=== PATIENT | male | born 1935 | race Caucasian/White ===

== ENCOUNTER 2018-10-28 17:10 | Inpatient (IN) | payer MEDICARE, BC ==
[2018-10-28] MEDS ORDERED: Sodium Chloride 0.9% 10 ML Syringe FLUSH PRN (17:14)
[2018-10-28 17:39] LABS: CHLORIDE,CL 102 mEq/L (98-106); SODIUM,NA 139 mEq/L (136-145)
[2018-10-28] MEDS ORDERED: ceFAZolin 1 GM Vial IVPUSH SCH (18:00)
[2018-10-28] MEDS ORDERED: Enoxaparin 30 MG/0.3 ML Syringe SUBCUT SCH (18:00)
[2018-10-28] MEDS: Ampicillin/Sulbactam Na 3 GM in Sodium Chloride 0.9% 100 ML IV SCH ×2 (18:17→23:43)
[2018-10-28] MEDS ORDERED: Furosemide 40 MG Tab PO PRN (18:18)
[2018-10-28] MEDS: Acetaminophen 325 MG Tab PO PRN (18:36)
[2018-10-28] MEDS: Phenytoin 100 MG Cap.ER PO SCH (19:30)
[2018-10-28] MEDS: Atenolol 50 MG Tab PO SCH (19:30)
[2018-10-29] MEDS: Ampicillin/Sulbactam Na 3 GM in Sodium Chloride 0.9% 100 ML IV SCH (05:18)
[2018-10-29 07:46] LABS: CHLORIDE,CL 103 mEq/L (98-106); SODIUM,NA 139 mEq/L (136-145)
[2018-10-29] MEDS: Phenytoin 100 MG Cap.ER PO SCH ×2 (07:49→19:31)
[2018-10-29] MEDS: Potassium Gluconate (99 MG) 2 MEQ Tab PO SCH (07:49)
[2018-10-29] MEDS: Atenolol 50 MG Tab PO SCH ×2 (07:49→19:31)
--- NOTE | 2018-10-29 08:57 | PCM.PN ---
- General Info Date of Service: 10/29/18 Admission Dx/Problem (Free Text): Cellulitis of LLE Functional Status: Reports: Pain Controlled, Tolerating Diet, Ambulating - Review of Systems General: Reports: Fever, Malaise HEENT: Reports: No Symptoms Pulmonary: Denies: Shortness of Breath, Cough Cardiovascular: Reports: Edema. Denies: Chest Pain, Lightheadedness Gastrointestinal: Denies: Abdominal Pain, Nausea, Vomiting Genitourinary: Reports: Frequency Musculoskeletal: Reports: Leg Pain Skin: Reports: Other (redness to left leg) Neurological: Reports: No Symptoms - Patient Data Vitals - Most Recent: Last Vital Signs Temp 99.6 F 10/29/18 05:32 Pulse 72 10/29/18 07:49 Resp 22 H 10/29/18 04:00 BP 138/65 10/29/18 07:49 Pulse Ox 94 L 10/29/18 04:00 Weight - Most Recent: 265 lb 6.4 oz Lab Results Last 24 Hours: Laboratory Results - last 24 hr 10/28/18 10/28/18 10/29/18 Range/Units 17:28 17:28 07:00 WBC 12.4 H 8.8 (5.0-10.0) 10^3/uL RBC 4.49 L 3.84 L (4.50-6.00) 10^6/uL Hgb 14.0 11.9 L (14.0-18.0) g/dL Hct 42.1 36.5 L (40.0-54.0) % MCV 93.8 95.1 H (82.0-94.0) fL MCH 31.2 31.0 (27.0-32.0) pg MCHC 33.3 32.6 L (33.0-38.0) g/dL RDW Coeff of Shelia 14.5 14.3 (11.0-15.0) % Plt Count 158 123 L (150-400) 10^3/uL Neut % (Auto) 83.5 76.3 (35-85) % Lymph % (Auto) 9.3 L 13.6 (10-55) % [place] % (Auto) 6.3 9.0 (0-16) % Eos % (Auto) 0.7 0.9 (0-5) % Baso % (Auto) 0.2 0.2 (0-3) % Neut # (Auto) 10.36 H 6.68 (1.80-7.00) 10^3/uL Lymph # (Auto) 1.15 1.19 (1.00-4.80) 10^3/uL [place] # (Auto) 0.78 0.79 (0.00-0.80) 10^3/uL Eos # (Auto) 0.09 0.08 (0.00-0.45) 10^3/uL Baso # (Auto) 0.03 0.02 10^3/uL Sodium 139 (136-145) mEq/L Potassium 3.8 (3.5-5.0) mEq/L Chloride 102 (98-106) mEq/L Carbon Dioxide 29 (21-32) mmol/L BUN 35 H D (7-18) mg/dL Creatinine 1.3 (0.7-1.3) mg/dL Est Cr Clr Drug Dosing TNP Estimated GFR (MDRD) 52 L (>=60) mL/min Glucose 157 H (75-99) mg/dL POC Glucose (75-105) mg/dl Calcium 9.0 (8.4-10.1) mg/dL Total Bilirubin (0.0-1.0) mg/dL AST (15-37) U/L ALT (12-78) U/L Alkaline Phosphatase (46-116) U/L C-Reactive Protein 22.9 H (0.2-0.8) mg/dL Total Protein (6.4-8.2) g/dL Albumin (3.4-5.0) g/dL 10/29/18 10/29/18 Range/Units 07:15 07:32 WBC (5.0-10.0) 10^3/uL RBC (4.50-6.00) 10^6/uL Hgb (14.0-18.0) g/dL Hct (40.0-54.0) % MCV (82.0-94.0) fL MCH (27.0-32.0) pg MCHC (33.0-38.0) g/dL RDW Coeff of Shelia (11.0-15.0) % Plt Count (150-400) 10^3/uL Neut % (Auto) (35-85) % Lymph % (Auto) (10-55) % [place] % (Auto) (0-16) % Eos % (Auto) (0-5) % Baso % (Auto) (0-3) % Neut # (Auto) (1.80-7.00) 10^3/uL Lymph # (Auto) (1.00-4.80) 10^3/uL [place] # (Auto) (0.00-0.80) 10^3/uL Eos # (Auto) (0.00-0.45) 10^3/uL Baso # (Auto) 10^3/uL Sodium 139 (136-145) mEq/L Potassium 3.7 (3.5-5.0) mEq/L Chloride 103 (98-106) mEq/L Carbon Dioxide 30 (21-32) mmol/L BUN 25 H (7-18) mg/dL Creatinine 1.1 (0.7-1.3) mg/dL Est Cr Clr Drug Dosing 57.08 Estimated GFR (MDRD) > 60 (>=60) mL/min Glucose 179 H (75-99) mg/dL POC Glucose 179 H (75-105) mg/dl Calcium 8.4 (8.4-10.1) mg/dL Total Bilirubin 0.6 (0.0-1.0) mg/dL AST 10 L (15-37) U/L ALT 16 (12-78) U/L Alkaline Phosphatase 74 (46-116) U/L C-Reactive Protein 26.9 H (0.2-0.8) mg/dL Total Protein 6.9 (6.4-8.2) g/dL Albumin 2.8 L (3.4-5.0) g/dL Med Orders - Current: Current Medications Acetaminophen (Tylenol) 650 mg PO Q4H PRN PRN Reason: Pain (Mild 1-3)/fever Last Admin: 10/28/18 18:36 Dose: 650 mg Atenolol (Tenormin) 50 mg PO BID [facility] Last Admin: 10/29/18 07:49 Dose: 50 mg Enoxaparin Sodium (Lovenox) 30 mg SUBCUT Q24H [facility] Last Admin: 10/28/18 18:35 Dose: 30 mg Furosemide (Lasix) 40 mg PO DAILY [facility] Ampicillin Sodium/Sulbactam (Sodium 3 gm/ Sodium Chloride) 100 mls @ 200 mls/ hr IV Q6H [facility] Last Admin: 10/29/18 05:18 Dose: 200 mls/hr Ptom Phenytoin (50 Mg) 50 mg PO BEDTIME [facility] Phenytoin Sodium (Phenytoin) 200 mg PO BEDTIME [facility] Last Admin: 10/28/18 19:30 Dose: 200 mg Phenytoin Sodium (Phenytoin) 200 mg PO WITHBREAKFAST [facility] Last Admin: 10/29/18 07:49 Dose: 200 mg Potassium (Potassium Gluconate) 2 meq PO DAILY [facility] Last Admin: 10/29/18 07:49 Dose: 2 meq Sodium Chloride (Saline Flush) 10 ml FLUSH ASDIRECTED PRN PRN Reason: Keep Vein Open Discontinued Medications Furosemide (Lasix) 40 mg PO DAILY PRN PRN Reason: Edema Last Admin: 10/29/18 07:50 Dose: 40 mg - Exam General: Alert, Oriented Neck: Supple Lungs: Clear to Auscultation, Normal Respiratory Effort Cardiovascular: Regular Rate, Regular Rhythm GI/Abdominal Exam: Normal Bowel Sounds, Soft, Non-Tender Extremities: Leg Pain, Increased Warmth (Patient has notable warmth and redness to LLE. Is tender. RLE is swollen, 2+ but not as significant as the left.), Redness Neurological: No New Focal Deficit - Problem List & Annotations (1) Cellulitis SNOMED Code(s): 985613211 Code(s): L03.90 - CELLULITIS, UNSPECIFIED Status: Acute Priority: High Current Visit: Yes Qualifiers: Site of cellulitis of extremity: lower extremity Laterality: left - Problem List Review Problem List Initiated/Reviewed/Updated: Yes - My Orders Last 24 Hours: My Active Orders 10/30/18 08:00 Furosemide [Lasix] 40 mg PO DAILY - Assessment Assessment:: Cellulitis - Plan Plan:: Patient is resting comfortably in recliner. States continues to have discomfort in LLE but not as severe as yesterday. Continues to have increased redness to the markings, swelling and tenderness. Leg very warm to the touch. Admits that he has not been taking his Lasix for some time as he "doesn't like having to void so often". Family unaware of this, states they had questioned him about this over [place] and he said he was taking it. Was febrile during the night 99-100 temp. WBC is improved to 8.8. CRP increased to 26.9. Will continue IV Unasyn. Schedule Lasix daily. Elevate legs. Reevaluate labs in am.
[2018-10-29] MEDS: Piperacillin/Tazobactam 3.375 GM in Sodium Chloride 0.9% 50 ML IV SCH ×3 (11:26→23:17)
[2018-10-29] MEDS: Enoxaparin 40 MG/0.4 ML Syringe SUBCUT SCH (15:46)
[2018-10-29] MEDS: PHENYTOIN 50 MG PO SCH (19:31)
[2018-10-29] MEDS: Acetaminophen 325 MG Tab PO PRN (23:16)
[2018-10-30] MEDS: Piperacillin/Tazobactam 3.375 GM in Sodium Chloride 0.9% 50 ML IV SCH ×4 (06:11→23:04)
[2018-10-30] MEDS: Phenytoin 100 MG Cap.ER PO SCH ×2 (08:03→20:19)
[2018-10-30] MEDS: Potassium Gluconate (99 MG) 2 MEQ Tab PO SCH (08:03)
[2018-10-30] MEDS: Furosemide 40 MG Tab PO SCH (08:04)
[2018-10-30] MEDS: Atenolol 50 MG Tab PO SCH ×2 (08:04→20:19)
[2018-10-30] MEDS: Enoxaparin 40 MG/0.4 ML Syringe SUBCUT SCH (15:50)
[2018-10-30] MEDS: PHENYTOIN 50 MG PO SCH (20:17)
[2018-10-30] MEDS: Acetaminophen 325 MG Tab PO PRN (20:19)
--- NOTE | 2018-10-30 21:44 | PCM.PN ---
- General Info Date of Service: 10/30/18 Admission Dx/Problem (Free Text): Cellulitis of LLE Functional Status: Reports: Pain Controlled, Tolerating Diet, Ambulating - Review of Systems General: Reports: Fever, Weakness HEENT: Reports: No Symptoms Pulmonary: Denies: Shortness of Breath, Cough Cardiovascular: Reports: Edema. Denies: Chest Pain, Lightheadedness Gastrointestinal: Reports: Diarrhea. Denies: Abdominal Pain, Nausea, Vomiting Genitourinary: Reports: No Symptoms Musculoskeletal: Reports: Leg Pain Skin: Reports: Other (redness and warmth to LLE) Neurological: Reports: No Symptoms - Patient Data Vitals - Most Recent: Last Vital Signs Temp 100.6 F 10/30/18 20:00 Pulse 81 10/30/18: Resp 16 10/30/18 20:00 BP 138/73 10/30/18: Pulse Ox 92 L 10/30/18 20:00 Weight - Most Recent: 265 lb 6.4 oz Lab Results Last 24 Hours: Laboratory Results - last 24 hr 10/29/18 10/30/18 10/30/18 Range/Units 17:04 06:55 06:55 WBC 7.5 (5.0-10.0) 10^3/uL RBC 3.82 L (4.50-6.00) 10^6/uL Hgb 11.8 L (14.0-18.0) g/dL Hct 36.8 L (40.0-54.0) % MCV 96.3 H (82.0-94.0) fL MCH 30.9 (27.0-32.0) pg MCHC 32.1 L (33.0-38.0) g/dL RDW Coeff of Shelia 14.3 (11.0-15.0) % Plt Count 128 L (150-400) 10^3/uL Neut % (Auto) 78.7 (35-85) % Lymph % (Auto) 10.9 (10-55) % [place] % (Auto) 8.8 (0-16) % Eos % (Auto) 1.3 (0-5) % Baso % (Auto) 0.3 (0-3) % Neut # (Auto) 5.93 (1.80-7.00) 10^3/uL Lymph # (Auto) 0.82 L (1.00-4.80) 10^3/uL [place] # (Auto) 0.66 (0.00-0.80) 10^3/uL Eos # (Auto) 0.10 (0.00-0.45) 10^3/uL Baso # (Auto) 0.02 10^3/uL POC Glucose 203 H (75-105) mg/dl C-Reactive Protein 25.7 H (0.2-0.8) mg/dL 10/30/18 10/30/18 Range/Units 08:00 21:22 WBC (5.0-10.0) 10^3/uL RBC (4.50-6.00) 10^6/uL Hgb (14.0-18.0) g/dL Hct (40.0-54.0) % MCV (82.0-94.0) fL MCH (27.0-32.0) pg MCHC (33.0-38.0) g/dL RDW Coeff of Shelia (11.0-15.0) % Plt Count (150-400) 10^3/uL Neut % (Auto) (35-85) % Lymph % (Auto) (10-55) % [place] % (Auto) (0-16) % Eos % (Auto) (0-5) % Baso % (Auto) (0-3) % Neut # (Auto) (1.80-7.00) 10^3/uL Lymph # (Auto) (1.00-4.80) 10^3/uL [place] # (Auto) (0.00-0.80) 10^3/uL Eos # (Auto) (0.00-0.45) 10^3/uL Baso # (Auto) 10^3/uL POC Glucose 176 H 204 H (75-105) mg/dl C-Reactive Protein (0.2-0.8) mg/dL Alex Results Last 24 Hours: Microbiology 10/28/18 17:20 Aerobic Blood Culture - Preliminary Blood - Venous NO GROWTH AFTER 2 DAYS Anaerobic Blood Culture - Preliminary NO GROWTH AFTER 2 DAYS 10/28/18 17:28 Aerobic Blood Culture - Preliminary Blood - Venous - Lab Draw NO GROWTH AFTER 2 DAYS Anaerobic Blood Culture - Preliminary NO GROWTH AFTER 2 DAYS 10/30/18 09:12 C. difficile DNA Amplification - Final Stool / Feces NEGATIVE CDIFF BY DNA Med Orders - Current: Current Medications Acetaminophen (Tylenol) 650 mg PO Q4H PRN PRN Reason: Pain (Mild 1-3)/fever Last Admin: 10/30/18 20:19 Dose: 650 mg Atenolol (Tenormin) 50 mg PO BID [facility] Last Admin: 10/30/18 20:19 Dose: 50 mg Enoxaparin Sodium (Lovenox) 40 mg SUBCUT 1600 [facility] Last Admin: 10/30/18 15:50 Dose: 40 mg Furosemide (Lasix) 40 mg PO DAILY [facility] Last Admin: 10/30/18 08:04 Dose: 40 mg Piperacillin Sod/Tazobactam (Sod 3.375 gm/ Sodium Chloride) 50 mls @ 100 mls/ hr IV Q6H [facility] Last Admin: 10/30/18 18:24 Dose: 100 mls/hr Ptom Phenytoin (50 Mg) 50 mg PO BEDTIME [facility] Last Admin: 10/30/18 20:17 Dose: 50 mg Phenytoin Sodium (Phenytoin) 200 mg PO BEDTIME [facility] Last Admin: 10/30/18 20:19 Dose: 200 mg Phenytoin Sodium (Phenytoin) 200 mg PO WITHBREAKFAST [facility] Last Admin: 10/30/18 08:03 Dose: 200 mg Potassium (Potassium Gluconate) 2 meq PO DAILY [facility] Last Admin: 10/30/18 08:03 Dose: 2 meq Sodium Chloride (Saline Flush) 10 ml FLUSH ASDIRECTED PRN PRN Reason: Keep Vein Open Discontinued Medications Enoxaparin Sodium (Lovenox) 30 mg SUBCUT Q24H [facility] Last Admin: 10/28/18 18:35 Dose: 30 mg Furosemide (Lasix) 40 mg PO DAILY PRN PRN Reason: Edema Last Admin: 10/29/18 07:50 Dose: 40 mg Ampicillin Sodium/Sulbactam (Sodium 3 gm/ Sodium Chloride) 100 mls @ 200 mls/ hr IV Q6H [facility] Last Admin: 10/29/18 05:18 Dose: 200 mls/hr - Exam General: Alert, Oriented HEENT: Mucous Membr. Moist/[place] Neck: Supple Lungs: Clear to Auscultation, Normal Respiratory Effort Cardiovascular: Regular Rate, Regular Rhythm GI/Abdominal Exam: Normal Bowel Sounds, Soft, Non-Tender Extremities: Pedal Edema (2+ LLE), Increased Warmth, Redness Skin: Warm, Dry Wound/Incisions: Erythema Improving Neurological: No New Focal Deficit - Problem List & Annotations (1) Cellulitis SNOMED Code(s): 463484365 Code(s): L03.90 - CELLULITIS, UNSPECIFIED Status: Acute Priority: High Current Visit: Yes Qualifiers: Site of cellulitis of extremity: lower extremity Laterality: left - Problem List Review Problem List Initiated/Reviewed/Updated: Yes - My Orders Last 24 Hours: My Active Orders 10/30/18 08:00 Furosemide [Lasix] 40 mg PO DAILY - Assessment Assessment:: Cellulitis - Plan Plan:: Patient is resting comfortably in recliner. States continues to have discomfort in LLE but not as severe as yesterday. Continues to have increased redness to the markings, swelling and tenderness. Leg very warm to the touch. Admits that he has not been taking his Lasix for some time as he "doesn't like having to void so often". Family unaware of this, states they had questioned him about this over [place] and he said he was taking it. Was febrile during the night 99-100 temp. WBC is improved to 8.8. CRP increased to 26.9. Will continue IV Unasyn. Schedule Lasix daily. Elevate legs. Reevaluate labs in am. 10-30-2018 Patient doing well today. Left leg is much improved today. Redness decreased significantly. Edema 2+. Nontender with palpation today. Leg is warm but not nearly like yesterday. Low grade fever today. Is having frequent loose stools. WBC stable. CRP down slightly to 25.7. Will obtain c diff stool study. Continue Zosyn. Repeat labs in am.
[2018-10-31] MEDS: Piperacillin/Tazobactam 3.375 GM in Sodium Chloride 0.9% 50 ML IV SCH ×4 (06:07→23:53)
[2018-10-31] MEDS: Potassium Gluconate (99 MG) 2 MEQ Tab PO SCH (07:47)
[2018-10-31] MEDS: Phenytoin 100 MG Cap.ER PO SCH ×2 (07:47→19:32)
[2018-10-31] MEDS: Furosemide 40 MG Tab PO SCH (07:54)
[2018-10-31] MEDS: Atenolol 50 MG Tab PO SCH ×2 (07:55→19:32)
--- NOTE | 2018-10-31 13:15 | PCM.PN ---
- General Info Date of Service: 10/31/18 Admission Dx/Problem (Free Text): Cellulitis of LLE Functional Status: Reports: Pain Controlled, Tolerating Diet, Ambulating - Review of Systems General: Reports: Fever, Fatigue HEENT: Reports: No Symptoms Pulmonary: Denies: Shortness of Breath, Cough Cardiovascular: Reports: Edema. Denies: Chest Pain, Lightheadedness Gastrointestinal: Reports: Diarrhea (states stool frequency is decreasing). Denies: Abdominal Pain, Nausea, Vomiting Genitourinary: Reports: No Symptoms Musculoskeletal: Reports: Leg Pain Skin: Reports: Other (redness to left leg) Neurological: Reports: No Symptoms - Patient Data Vitals - Most Recent: Last Vital Signs Temp 97.5 F 10/31/18 11:52 Pulse 67 10/31/18 11:52 Resp 20 10/31/18 11:52 BP 152/79 H 10/31/18 11:52 Pulse Ox 96 10/31/18 11:52 Weight - Most Recent: 265 lb 6.4 oz Lab Results Last 24 Hours: Laboratory Results - last 24 hr 10/30/18 10/31/18 10/31/18 Range/Units 21:22 06:55 06:55 WBC 6.3 (5.0-10.0) 10^3/uL RBC 4.03 L (4.50-6.00) 10^6/uL Hgb 12.7 L (14.0-18.0) g/dL Hct 38.0 L (40.0-54.0) % MCV 94.3 H (82.0-94.0) fL MCH 31.5 (27.0-32.0) pg MCHC 33.4 (33.0-38.0) g/dL RDW Coeff of Shelia 13.8 (11.0-15.0) % Plt Count 154 (150-400) 10^3/uL Neut % (Auto) 71.5 (35-85) % Lymph % (Auto) 16.5 (10-55) % [place] % (Auto) 8.3 (0-16) % Eos % (Auto) 3.2 (0-5) % Baso % (Auto) 0.5 (0-3) % Neut # (Auto) 4.50 (1.80-7.00) 10^3/uL Lymph # (Auto) 1.04 (1.00-4.80) 10^3/uL [place] # (Auto) 0.52 (0.00-0.80) 10^3/uL Eos # (Auto) 0.20 (0.00-0.45) 10^3/uL Baso # (Auto) 0.03 10^3/uL POC Glucose 204 H (75-105) mg/dl C-Reactive Protein 19.4 H (0.2-0.8) mg/dL 10/31/18 Range/Units 07:54 WBC (5.0-10.0) 10^3/uL RBC (4.50-6.00) 10^6/uL Hgb (14.0-18.0) g/dL Hct (40.0-54.0) % MCV (82.0-94.0) fL MCH (27.0-32.0) pg MCHC (33.0-38.0) g/dL RDW Coeff of Shelia (11.0-15.0) % Plt Count (150-400) 10^3/uL Neut % (Auto) (35-85) % Lymph % (Auto) (10-55) % [place] % (Auto) (0-16) % Eos % (Auto) (0-5) % Baso % (Auto) (0-3) % Neut # (Auto) (1.80-7.00) 10^3/uL Lymph # (Auto) (1.00-4.80) 10^3/uL [place] # (Auto) (0.00-0.80) 10^3/uL Eos # (Auto) (0.00-0.45) 10^3/uL Baso # (Auto) 10^3/uL POC Glucose 186 H (75-105) mg/dl C-Reactive Protein (0.2-0.8) mg/dL Alex Results Last 24 Hours: Microbiology 10/28/18 17:20 Aerobic Blood Culture - Preliminary Blood - Venous NO GROWTH AFTER 2 DAYS Anaerobic Blood Culture - Preliminary NO GROWTH AFTER 2 DAYS 10/28/18 17:28 Aerobic Blood Culture - Preliminary Blood - Venous - Lab Draw NO GROWTH AFTER 2 DAYS Anaerobic Blood Culture - Preliminary NO GROWTH AFTER 2 DAYS 10/30/18 09:12 C. difficile DNA Amplification - Final Stool / Feces NEGATIVE CDIFF BY DNA Med Orders - Current: Current Medications Acetaminophen (Tylenol) 650 mg PO Q4H PRN PRN Reason: Pain (Mild 1-3)/fever Last Admin: 10/30/18 20:19 Dose: 650 mg Atenolol (Tenormin) 50 mg PO BID [facility] Last Admin: 10/31/18 07:55 Dose: 50 mg Enoxaparin Sodium (Lovenox) 40 mg SUBCUT 1600 [facility] Last Admin: 10/30/18 15:50 Dose: 40 mg Furosemide (Lasix) 40 mg PO DAILY [facility] Last Admin: 10/31/18 07:54 Dose: 40 mg Piperacillin Sod/Tazobactam (Sod 3.375 gm/ Sodium Chloride) 50 mls @ 100 mls/ hr IV Q6H [facility] Last Admin: 10/31/18 11:29 Dose: 100 mls/hr Ptom Phenytoin (50 Mg) 50 mg PO BEDTIME [facility] Last Admin: 10/30/18 20:17 Dose: 50 mg Phenytoin Sodium (Phenytoin) 200 mg PO BEDTIME [facility] Last Admin: 10/30/18 20:19 Dose: 200 mg Phenytoin Sodium (Phenytoin) 200 mg PO WITHBREAKFAST [facility] Last Admin: 10/31/18 07:47 Dose: 200 mg Potassium (Potassium Gluconate) 2 meq PO DAILY [facility] Last Admin: 10/31/18 07:47 Dose: 2 meq Sodium Chloride (Saline Flush) 10 ml FLUSH ASDIRECTED PRN PRN Reason: Keep Vein Open Discontinued Medications Enoxaparin Sodium (Lovenox) 30 mg SUBCUT Q24H [facility] Last Admin: 10/28/18 18:35 Dose: 30 mg Furosemide (Lasix) 40 mg PO DAILY PRN PRN Reason: Edema Last Admin: 10/29/18 07:50 Dose: 40 mg Ampicillin Sodium/Sulbactam (Sodium 3 gm/ Sodium Chloride) 100 mls @ 200 mls/ hr IV Q6H [facility] Last Admin: 10/29/18 05:18 Dose: 200 mls/hr - Exam General: Alert, Oriented HEENT: Mucous Membr. Moist/[place] Neck: Supple Lungs: Clear to Auscultation, Normal Respiratory Effort Cardiovascular: Regular Rate, Regular Rhythm GI/Abdominal Exam: Normal Bowel Sounds, Soft, Non-Tender Extremities: Pedal Edema, Increased Warmth, Redness (LLE redness is improving. Less warmth. Swelling down to 1-2+. ) - Problem List & Annotations (1) Cellulitis SNOMED Code(s): 677590523 Code(s): L03.90 - CELLULITIS, UNSPECIFIED Status: Acute Priority: High Current Visit: Yes Qualifiers: Site of cellulitis of extremity: lower extremity Laterality: left - Problem List Review Problem List Initiated/Reviewed/Updated: Yes - Assessment Assessment:: Cellulitis - Plan Plan:: Patient is resting comfortably in recliner. States continues to have discomfort in LLE but not as severe as yesterday. Continues to have increased redness to the markings, swelling and tenderness. Leg very warm to the touch. Admits that he has not been taking his Lasix for some time as he "doesn't like having to void so often". Family unaware of this, states they had questioned him about this over [place] and he said he was taking it. Was febrile during the night 99-100 temp. WBC is improved to 8.8. CRP increased to 26.9. Will continue IV Unasyn. Schedule Lasix daily. Elevate legs. Reevaluate labs in am. 10-30-2018 Patient doing well today. Left leg is much improved today. Redness decreased significantly. Edema 2+. Nontender with palpation today. Leg is warm but not nearly like yesterday. Low grade fever today. Is having frequent loose stools. WBC stable. CRP down slightly to 25.7. Will obtain c diff stool study. Continue Zosyn. Repeat labs in am. 10-31-2018 Patient continues to improve. Did still run low grade temps last evening/early am. Redness is improving daily to LLE, decreased to midshin at this time. Still warm to the touch. Swelling/edema 2+ in that leg. Patient states diarrhea stools are lessening in frequency, not as loose as they were yesterday. Labs are improving. WBC stable, CRP down to 19.4 today. Will continue with IV Zosyn. Recheck labs tomorrow. Possible transfer to swing bed tomorrow.
[2018-10-31] MEDS: Enoxaparin 40 MG/0.4 ML Syringe SUBCUT SCH (17:04)
[2018-10-31] MEDS: PHENYTOIN 50 MG PO SCH (19:32)
[2018-11-01] MEDS: Piperacillin/Tazobactam 3.375 GM in Sodium Chloride 0.9% 50 ML IV SCH ×4 (05:51→23:51)
[2018-11-01] MEDS: Phenytoin 100 MG Cap.ER PO SCH ×2 (07:57→19:26)
[2018-11-01] MEDS: Potassium Gluconate (99 MG) 2 MEQ Tab PO SCH (07:58)
[2018-11-01] MEDS: Furosemide 40 MG Tab PO SCH (07:58)
[2018-11-01] MEDS: Atenolol 50 MG Tab PO SCH ×2 (07:58→19:25)
[2018-11-01 09:25] LABS: CHLORIDE,CL 99 mEq/L (98-106); SODIUM,NA 137 mEq/L (136-145)
--- NOTE | 2018-11-01 14:02 | PCM.PN ---
- General Info Date of Service: 11/01/18 Functional Status: Reports: Pain Controlled, Tolerating Diet, Ambulating, Urinating - Review of Systems General: Reports: No Symptoms HEENT: Reports: No Symptoms Pulmonary: Reports: No Symptoms Cardiovascular: Reports: No Symptoms Gastrointestinal: Reports: No Symptoms Genitourinary: Reports: No Symptoms Musculoskeletal: Reports: No Symptoms Skin: Reports: Other (redness LLE about mid calf down to foot. ) Neurological: Reports: No Symptoms Psychiatric: Reports: No Symptoms - Patient Data Vitals - Most Recent: Last Vital Signs Temp 97.3 F 11/01/18 08:00 Pulse 66 11/01/18 08:00 Resp 18 11/01/18 08:00 BP 149/83 H 11/01/18 08:00 Pulse Ox 96 11/01/18 08:00 Weight - Most Recent: 265 lb 6.4 oz Lab Results Last 24 Hours: Laboratory Results - last 24 hr 10/31/18 11/01/18 11/01/18 Range/Units 17:05 07:57 09:10 WBC (5.0-10.0) 10^3/uL RBC (4.50-6.00) 10^6/uL Hgb (14.0-18.0) g/dL Hct (40.0-54.0) % MCV (82.0-94.0) fL MCH (27.0-32.0) pg MCHC (33.0-38.0) g/dL RDW Coeff of Shelia (11.0-15.0) % Plt Count (150-400) 10^3/uL Neut % (Auto) (35-85) % Lymph % (Auto) (10-55) % [place] % (Auto) (0-16) % Eos % (Auto) (0-5) % Baso % (Auto) (0-3) % Neut # (Auto) (1.80-7.00) 10^3/uL Lymph # (Auto) (1.00-4.80) 10^3/uL [place] # (Auto) (0.00-0.80) 10^3/uL Eos # (Auto) (0.00-0.45) 10^3/uL Baso # (Auto) 10^3/uL Sodium 137 (136-145) mEq/L Potassium 4.1 (3.5-5.0) mEq/L Chloride 99 (98-106) mEq/L Carbon Dioxide 30 (21-32) mmol/L BUN 15 (7-18) mg/dL Creatinine 1.1 (0.7-1.3) mg/dL Est Cr Clr Drug Dosing 57.08 mL/min Estimated GFR (MDRD) > 60 (>=60) mL/min Glucose 275 H D (75-99) mg/dL POC Glucose 201 H 198 H (75-105) mg/dl Calcium 8.7 (8.4-10.1) mg/dL C-Reactive Protein (0.2-0.8) mg/dL 11/01/18 11/01/18 Range/Units 09:10 09:10 WBC 5.2 (5.0-10.0) 10^3/uL RBC 4.30 L (4.50-6.00) 10^6/uL Hgb 13.3 L (14.0-18.0) g/dL Hct 40.4 (40.0-54.0) % MCV 94.0 (82.0-94.0) fL MCH 30.9 (27.0-32.0) pg MCHC 32.9 L (33.0-38.0) g/dL RDW Coeff of Shelia 13.5 (11.0-15.0) % Plt Count 166 (150-400) 10^3/uL Neut % (Auto) 68.6 (35-85) % Lymph % (Auto) 18.4 (10-55) % [place] % (Auto) 8.0 (0-16) % Eos % (Auto) 4.2 (0-5) % Baso % (Auto) 0.8 (0-3) % Neut # (Auto) 3.58 (1.80-7.00) 10^3/uL Lymph # (Auto) 0.96 L (1.00-4.80) 10^3/uL [place] # (Auto) 0.42 (0.00-0.80) 10^3/uL Eos # (Auto) 0.22 (0.00-0.45) 10^3/uL Baso # (Auto) 0.04 10^3/uL Sodium (136-145) mEq/L Potassium (3.5-5.0) mEq/L Chloride (98-106) mEq/L Carbon Dioxide (21-32) mmol/L BUN (7-18) mg/dL Creatinine (0.7-1.3) mg/dL Est Cr Clr Drug Dosing mL/min Estimated GFR (MDRD) (>=60) mL/min Glucose (75-99) mg/dL POC Glucose (75-105) mg/dl Calcium (8.4-10.1) mg/dL C-Reactive Protein 11.3 H (0.2-0.8) mg/dL Alex Results Last 24 Hours: Microbiology 10/28/18 17:20 Aerobic Blood Culture - Preliminary Blood - Venous NO GROWTH AFTER 3 DAYS Anaerobic Blood Culture - Preliminary NO GROWTH AFTER 3 DAYS 10/28/18 17:28 Aerobic Blood Culture - Preliminary Blood - Venous - Lab Draw NO GROWTH AFTER 3 DAYS Anaerobic Blood Culture - Preliminary NO GROWTH AFTER 3 DAYS Med Orders - Current: Current Medications Acetaminophen (Tylenol) 650 mg PO Q4H PRN PRN Reason: Pain (Mild 1-3)/fever Last Admin: 10/30/18 20:19 Dose: 650 mg Atenolol (Tenormin) 50 mg PO BID [facility] Last Admin: 11/01/18 07:58 Dose: 50 mg Enoxaparin Sodium (Lovenox) 40 mg SUBCUT 1600 [facility] Last Admin: 10/31/18 17:04 Dose: 40 mg Furosemide (Lasix) 40 mg PO DAILY [facility] Last Admin: 11/01/18 07:58 Dose: 40 mg Piperacillin Sod/Tazobactam (Sod 3.375 gm/ Sodium Chloride) 50 mls @ 100 mls/ hr IV Q6H [facility] Last Admin: 11/01/18 11:12 Dose: 100 mls/hr Ptom Phenytoin (50 Mg) 50 mg PO BEDTIME [facility] Last Admin: 10/31/18 19:32 Dose: 50 mg Phenytoin Sodium (Phenytoin) 200 mg PO BEDTIME [facility] Last Admin: 10/31/18 19:32 Dose: 200 mg Phenytoin Sodium (Phenytoin) 200 mg PO WITHBREAKFAST [facility] Last Admin: 11/01/18 07:57 Dose: 200 mg Potassium (Potassium Gluconate) 2 meq PO DAILY [facility] Last Admin: 11/01/18 07:58 Dose: 2 meq Sodium Chloride (Saline Flush) 10 ml FLUSH ASDIRECTED PRN PRN Reason: Keep Vein Open Discontinued Medications Enoxaparin Sodium (Lovenox) 30 mg SUBCUT Q24H [facility] Last Admin: 10/28/18 18:35 Dose: 30 mg Furosemide (Lasix) 40 mg PO DAILY PRN PRN Reason: Edema Last Admin: 10/29/18 07:50 Dose: 40 mg Ampicillin Sodium/Sulbactam (Sodium 3 gm/ Sodium Chloride) 100 mls @ 200 mls/ hr IV Q6H [facility] Last Admin: 10/29/18 05:18 Dose: 200 mls/hr - Exam General: Alert, Oriented, Cooperative, No Acute Distress Lungs: Clear to Auscultation, Normal Respiratory Effort Cardiovascular: Regular Rate, Regular Rhythm, No Murmurs GI/Abdominal Exam: Normal Bowel Sounds, Soft, Non-Tender, No Organomegaly, No Distention, No Abnormal Bruit, No Mass, Pelvis Stable Back Exam: Normal Inspection, Full Range of Motion Extremities: Normal Range of Motion, Non-Tender, Normal Capillary Refill, Pedal Edema (+2 LLE), Redness (LLE mid calf to the ankle. Much improved since yesterday marking on the leg. Decreased swelling, decreased warm. Nontender today. ) Peripheral Pulses: 2+: Popliteal (L), Popliteal (R), Posterior Tibial (L), Posterior Tibial (R), Dorsalis Pedis (L), Dorsalis Pedis (R) Skin: Warm, Dry, Intact Neurological: No New Focal Deficit, Normal Speech Psy/Mental Status: Alert, Normal Affect, Normal Mood - Problem List Review Problem List Initiated/Reviewed/Updated: Yes - My Orders Last 24 Hours: My Active Orders 11/02/18 05:00 BASIC METABOLIC PANEL,BMP [CHEM] DAILY 11/03/18 05:00 BASIC METABOLIC PANEL,BMP [CHEM] DAILY - Assessment Assessment:: Cellulitis - Plan Plan:: Patient is resting comfortably in recliner. States continues to have discomfort in LLE but not as severe as yesterday. Continues to have increased redness to the markings, swelling and tenderness. Leg very warm to the touch. Admits that he has not been taking his Lasix for some time as he "doesn't like having to void so often". Family unaware of this, states they had questioned him about this over [place] and he said he was taking it. Was febrile during the night 99-100 temp. WBC is improved to 8.8. CRP increased to 26.9. Will continue IV Unasyn. Schedule Lasix daily. Elevate legs. Reevaluate labs in am. 10-30-2018 Patient doing well today. Left leg is much improved today. Redness decreased significantly. Edema 2+. Nontender with palpation today. Leg is warm but not nearly like yesterday. Low grade fever today. Is having frequent loose stools. WBC stable. CRP down slightly to 25.7. Will obtain c diff stool study. Continue Zosyn. Repeat labs in am. 10-31-2018 Patient continues to improve. Did still run low grade temps last evening/early am. Redness is improving daily to LLE, decreased to midshin at this time. Still warm to the touch. Swelling/edema 2+ in that leg. Patient states diarrhea stools are lessening in frequency, not as loose as they were yesterday. Labs are improving. WBC stable, CRP down to 19.4 today. Will continue with IV Zosyn. Recheck labs tomorrow. Possible transfer to swing bed tomorrow. 11/01/18 The patient today is much improved. The patient request to stay one more day. The patient denies epstein, dizziness, n, v, d, f. Reports leg is less tender. The labs are unremarkable. At this time, the plan is I will continue IV abx and discharge patient home tomorrow morning.
[2018-11-01] MEDS: Enoxaparin 40 MG/0.4 ML Syringe SUBCUT SCH (16:57)
[2018-11-01] MEDS: PHENYTOIN 50 MG PO SCH (19:26)
[2018-11-02] MEDS: Piperacillin/Tazobactam 3.375 GM in Sodium Chloride 0.9% 50 ML IV SCH ×2 (05:57→11:28)
[2018-11-02] MEDS: Furosemide 40 MG Tab PO SCH (07:45)
[2018-11-02] MEDS: Atenolol 50 MG Tab PO SCH (07:46)
[2018-11-02] MEDS: Phenytoin 100 MG Cap.ER PO SCH (07:46)
[2018-11-02] MEDS: Potassium Gluconate (99 MG) 2 MEQ Tab PO SCH (07:46)
[2018-11-02 08:04] LABS: CHLORIDE,CL 102 mEq/L (98-106); SODIUM,NA 139 mEq/L (136-145)
[2018-11-02] MEDS: Enoxaparin 40 MG/0.4 ML Syringe SUBCUT SCH (16:25)
--- NOTE | 2018-11-02 16:39 | PCM.PN ---
- General Info Date of Service: 11/02/18 Functional Status: Reports: Pain Controlled, Tolerating Diet, Ambulating - Review of Systems General: Reports: No Symptoms. Denies: Fever HEENT: Reports: No Symptoms Pulmonary: Reports: No Symptoms Cardiovascular: Reports: No Symptoms Gastrointestinal: Reports: No Symptoms Genitourinary: Reports: No Symptoms Musculoskeletal: Reports: Leg Pain (LLE) Skin: Reports: Other (redness LLE) Neurological: Reports: No Symptoms Psychiatric: Reports: No Symptoms - Patient Data Vitals - Most Recent: Last Vital Signs Temp 98.6 F 11/02/18 16:28 Pulse 72 11/02/18 15:24 Resp 16 11/02/18 15:24 BP 141/82 H 11/02/18 15:24 Pulse Ox 95 11/02/18 15:24 Weight - Most Recent: 265 lb 6.4 oz Lab Results Last 24 Hours: Laboratory Results - last 24 hr 11/01/18 11/02/18 11/02/18 Range/Units 17:07 07:00 07:50 Sodium 139 (136-145) mEq/L Potassium 4.1 (3.5-5.0) mEq/L Chloride 102 (98-106) mEq/L Carbon Dioxide 31 (21-32) mmol/L BUN 16 (7-18) mg/dL Creatinine 1.1 (0.7-1.3) mg/dL Est Cr Clr Drug Dosing 57.08 mL/min Estimated GFR (MDRD) > 60 (>=60) mL/min Glucose 188 H D (75-99) mg/dL POC Glucose 181 H 185 H (75-105) mg/dl Calcium 9.0 (8.4-10.1) mg/dL Alex Results Last 24 Hours: Microbiology 10/28/18 17:20 Aerobic Blood Culture - Preliminary Blood - Venous NO GROWTH AFTER 4 DAYS Anaerobic Blood Culture - Preliminary NO GROWTH AFTER 4 DAYS 10/28/18 17:28 Aerobic Blood Culture - Preliminary Blood - Venous - Lab Draw NO GROWTH AFTER 4 DAYS Anaerobic Blood Culture - Preliminary NO GROWTH AFTER 4 DAYS Med Orders - Current: Current Medications Acetaminophen (Tylenol) 650 mg PO Q4H PRN PRN Reason: Pain (Mild 1-3)/fever Last Admin: 10/30/18 20:19 Dose: 650 mg Atenolol (Tenormin) 50 mg PO BID [facility] Last Admin: 11/02/18 07:46 Dose: 50 mg Enoxaparin Sodium (Lovenox) 40 mg SUBCUT 1600 [facility] Last Admin: 11/02/18 16:25 Dose: 40 mg Furosemide (Lasix) 40 mg PO DAILY [facility] Last Admin: 11/02/18 07:45 Dose: 40 mg Piperacillin Sod/Tazobactam (Sod 3.375 gm/ Sodium Chloride) 50 mls @ 100 mls/ hr IV Q6H [facility] Last Admin: 11/02/18 11:28 Dose: 100 mls/hr Ptom Phenytoin (50 Mg) 50 mg PO BEDTIME [facility] Last Admin: 11/01/18 19:26 Dose: 50 mg Phenytoin Sodium (Phenytoin) 200 mg PO BEDTIME [facility] Last Admin: 11/01/18 19:26 Dose: 200 mg Phenytoin Sodium (Phenytoin) 200 mg PO WITHBREAKFAST [facility] Last Admin: 11/02/18 07:46 Dose: 200 mg Potassium (Potassium Gluconate) 2 meq PO DAILY [facility] Last Admin: 11/02/18 07:46 Dose: 2 meq Sodium Chloride (Saline Flush) 10 ml FLUSH ASDIRECTED PRN PRN Reason: Keep Vein Open Discontinued Medications Enoxaparin Sodium (Lovenox) 30 mg SUBCUT Q24H [facility] Last Admin: 10/28/18 18:35 Dose: 30 mg Furosemide (Lasix) 40 mg PO DAILY PRN PRN Reason: Edema Last Admin: 10/29/18 07:50 Dose: 40 mg Ampicillin Sodium/Sulbactam (Sodium 3 gm/ Sodium Chloride) 100 mls @ 200 mls/ hr IV Q6H [facility] Last Admin: 10/29/18 05:18 Dose: 200 mls/hr - Exam General: Alert, Oriented, Cooperative, No Acute Distress Lungs: Clear to Auscultation, Normal Respiratory Effort Cardiovascular: Regular Rate, Regular Rhythm, No Murmurs GI/Abdominal Exam: Soft, Non-Tender Back Exam: Normal Inspection, Full Range of Motion Extremities: Normal Capillary Refill, Pedal Edema (+2 LLE, +1 RLL. ), Leg Pain ( LLE distal anterior calf. ), Increased Warmth (LLE), Redness (LLE. improved since yesterday. ) Peripheral Pulses: 2+: Posterior Tibial (L), Posterior Tibial (R), Dorsalis Pedis (L), Dorsalis Pedis (R) Skin: Warm, Dry, Intact Psy/Mental Status: Alert, Normal Affect, Normal Mood - Problem List Review Problem List Initiated/Reviewed/Updated: Yes - My Orders Last 24 Hours: My Active Orders 11/03/18 05:00 BASIC METABOLIC PANEL,BMP [CHEM] DAILY - Assessment Assessment:: Cellulitis - Plan Plan:: Patient is resting comfortably in recliner. States continues to have discomfort in LLE but not as severe as yesterday. Continues to have increased redness to the markings, swelling and tenderness. Leg very warm to the touch. Admits that he has not been taking his Lasix for some time as he "doesn't like having to void so often". Family unaware of this, states they had questioned him about this over [place] and he said he was taking it. Was febrile during the night 99-100 temp. WBC is improved to 8.8. CRP increased to 26.9. Will continue IV Unasyn. Schedule Lasix daily. Elevate legs. Reevaluate labs in am. 10-30-2018 Patient doing well today. Left leg is much improved today. Redness decreased significantly. Edema 2+. Nontender with palpation today. Leg is warm but not nearly like yesterday. Low grade fever today. Is having frequent loose stools. WBC stable. CRP down slightly to 25.7. Will obtain c diff stool study. Continue Zosyn. Repeat labs in am. 10-31-2018 Patient continues to improve. Did still run low grade temps last evening/early am. Redness is improving daily to LLE, decreased to midshin at this time. Still warm to the touch. Swelling/edema 2+ in that leg. Patient states diarrhea stools are lessening in frequency, not as loose as they were yesterday. Labs are improving. WBC stable, CRP down to 19.4 today. Will continue with IV Zosyn. Recheck labs tomorrow. Possible transfer to swing bed tomorrow. 11/01/18 The patient today is much improved. The patient request to stay one more day. The patient denies epstein, dizziness, n, v, d, f. Reports leg is less tender. The labs are unremarkable. At this time, the plan is I will continue IV abx and discharge patient home tomorrow morning.
--- NOTE | 2018-11-02 16:49 | PCM.DCSUM1 ---
Discharge Summary - Hospital Course HPI Initial Comments: 11/02/18 Patient continues to improve today. The patient reports that he is feeling better from yesterday to today. Patient report though that he is concerned that he may be going home to early and it will worsen if he goes home. The patient request to stay one more night. The patient reports he is sitll having some pain to the LLE. The patient still does continue to have cellulitis to the LLE. It has improved, but still current. The patient denies epstein, dizziness, n, v, d, f. Reports leg is tender. The labs are unremarkable, CRP remains elevated. At this time, the plan is I will continue IV abx and allow PCP to see the patient tomorrow for possible discharge. I will swing the patient. The patient has been able to get up with assistance. He has continued to have legs elevated in recliner chair in the room. Diagnosis: Stroke: No - Discharge Data Discharge Date: 11/02/18 Discharge Disposition: DC/Tfer W/I Hosp To Swing 61 Condition: Good - Discharge Plan *PRESCRIPTION DRUG MONITORING PROGRAM REVIEWED*: Not Applicable *COPY OF PRESCRIPTION DRUG MONITORING REPORT IN PATIENT JUDY: Not Applicable Home Medications: Home Meds Atenolol 50 mg PO BID 10/28/18 [History] Furosemide 40 mg PO DAILY PRN 10/28/18 [History] Multivit-Min/FA/Lycopen/Lutein [Centrum Silver Men Tablet] 1 tab PO DAILY [History] Phenytoin 50 mg PO BEDTIME 10/28/18 [History] Phenytoin Sodium Extended [Dilantin] 200 mg PO BEDTIME 10/28/18 [History] Phenytoin Sodium Extended [Dilantin] 200 mg PO WITHBREAKFAST 10/28/18 [History] Potassium 99 mg PO DAILY 10/28/18 [History] Patient Handouts: Cellulitis, Adult - Discharge Summary/Plan Comment DC Time >30 min.: No - General Info Date of Service: 11/02/18 Functional Status: Reports: Pain Controlled, Tolerating Diet, Ambulating - Review of Systems General: Reports: No Symptoms HEENT: Reports: No Symptoms Pulmonary: Reports: No Symptoms Cardiovascular: Reports: No Symptoms Gastrointestinal: Reports: No Symptoms Genitourinary: Reports: No Symptoms Musculoskeletal: Reports: Other (LLE Pain) Skin: Reports: Other (Redness) Neurological: Reports: No Symptoms Psychiatric: Reports: No Symptoms - Patient Data Vitals - Most Recent: Last Vital Signs Temp 98.6 F 11/02/18 16:28 Pulse 72 11/02/18 15:24 Resp 16 11/02/18 15:24 BP 141/82 H 11/02/18 15:24 Pulse Ox 95 11/02/18 15:24 Weight - Most Recent: 265 lb 6.4 oz Lab Results - Last 24 hrs: Laboratory Results - last 24 hr 11/01/18 11/02/18 11/02/18 Range/Units 17:07 07:00 07:50 Sodium 139 (136-145) mEq/L Potassium 4.1 (3.5-5.0) mEq/L Chloride 102 (98-106) mEq/L Carbon Dioxide 31 (21-32) mmol/L BUN 16 (7-18) mg/dL Creatinine 1.1 (0.7-1.3) mg/dL Est Cr Clr Drug Dosing 57.08 mL/min Estimated GFR (MDRD) > 60 (>=60) mL/min Glucose 188 H D (75-99) mg/dL POC Glucose 181 H 185 H (75-105) mg/dl Calcium 9.0 (8.4-10.1) mg/dL TESSY Results - Last 24 hrs: Microbiology 10/28/18 17:20 Aerobic Blood Culture - Preliminary Blood - Venous NO GROWTH AFTER 4 DAYS Anaerobic Blood Culture - Preliminary NO GROWTH AFTER 4 DAYS 10/28/18 17:28 Aerobic Blood Culture - Preliminary Blood - Venous - Lab Draw NO GROWTH AFTER 4 DAYS Anaerobic Blood Culture - Preliminary NO GROWTH AFTER 4 DAYS Med Orders - Current: Current Medications Acetaminophen (Tylenol) 650 mg PO Q4H PRN PRN Reason: Pain (Mild 1-3)/fever Last Admin: 10/30/18 20:19 Dose: 650 mg Atenolol (Tenormin) 50 mg PO BID [facility] Last Admin: 11/02/18 07:46 Dose: 50 mg Enoxaparin Sodium (Lovenox) 40 mg SUBCUT 1600 [facility] Last Admin: 11/02/18 16:25 Dose: 40 mg Furosemide (Lasix) 40 mg PO DAILY [facility] Last Admin: 11/02/18 07:45 Dose: 40 mg Piperacillin Sod/Tazobactam (Sod 3.375 gm/ Sodium Chloride) 50 mls @ 100 mls/ hr IV Q6H [facility] Last Admin: 11/02/18 11:28 Dose: 100 mls/hr Ptom Phenytoin (50 Mg) 50 mg PO BEDTIME [facility] Last Admin: 11/01/18 19:26 Dose: 50 mg Phenytoin Sodium (Phenytoin) 200 mg PO BEDTIME [facility] Last Admin: 11/01/18 19:26 Dose: 200 mg Phenytoin Sodium (Phenytoin) 200 mg PO WITHBREAKFAST [facility] Last Admin: 11/02/18 07:46 Dose: 200 mg Potassium (Potassium Gluconate) 2 meq PO DAILY [facility] Last Admin: 11/02/18 07:46 Dose: 2 meq Sodium Chloride (Saline Flush) 10 ml FLUSH ASDIRECTED PRN PRN Reason: Keep Vein Open Discontinued Medications Enoxaparin Sodium (Lovenox) 30 mg SUBCUT Q24H [facility] Last Admin: 10/28/18 18:35 Dose: 30 mg Furosemide (Lasix) 40 mg PO DAILY PRN PRN Reason: Edema Last Admin: 10/29/18 07:50 Dose: 40 mg Ampicillin Sodium/Sulbactam (Sodium 3 gm/ Sodium Chloride) 100 mls @ 200 mls/ hr IV Q6H [facility] Last Admin: 10/29/18 05:18 Dose: 200 mls/hr - Exam General: Reports: Alert, Oriented, Cooperative, No Acute Distress Lungs: Reports: Clear to Auscultation, Normal Respiratory Effort Cardiovascular: Reports: Regular Rate, Regular Rhythm GI/Abdominal Exam: Soft, Non-Tender, No Organomegaly, No Distention Back Exam: Reports: Normal Inspection, Full Range of Motion Extremities: Normal Inspection, Normal Range of Motion, Non-Tender, Normal Capillary Refill, Pedal Edema (+2 LLE, +1 rle), Leg Pain (LLE), Redness (lle) Skin: Reports: Warm, Dry, Intact Neurological: Reports: No New Focal Deficit, Normal Gait, Normal Speech Psy/Mental Status: Reports: Alert, Normal Affect, Normal Mood
== END 2018-11-02 16:45 | disposition swing bed (61) | DRG 603 ==
LOC: UNDOADMIN 17:10 → CC.MS 17:10
PROVIDERS: ADMIT Physician Assistant Medical; ATTEND Family Medicine
DX: L03.116 Cellulitis of left lower limb (principal); N40.0 Benign prostatic hyperplasia without lower urinary tract symptoms; E11.9 Type 2 diabetes mellitus without complications; H91.90 Unspecified hearing loss, unspecified ear; I10 Essential (primary) hypertension; G40.909 Epilepsy, unspecified, not intractable, without status epilepticus; G47.30 Sleep apnea, unspecified; R60.0 Localized edema; Z79.899 Other long term (current) drug therapy; Z87.891 Personal history of nicotine dependence; Z91.14 Patient's other noncompliance with medication regimen
CPT/HCPCS: 36415; 80048; 80053; 82962; 85025; 86140; 87040; 87493; A9270-GY; J0295; J1650; J2543; J7050

== ENCOUNTER 2018-11-02 16:50 | Inpatient (IN) | payer MEDICARE, BC ==
[2018-11-02] MEDS ORDERED: Acetaminophen 325 MG Tab PO PRN (17:44)
[2018-11-02] MEDS ORDERED: Sodium Chloride 0.9% 10 ML Syringe FLUSH PRN ×2 (17:44)
[2018-11-02] MEDS: Piperacillin/Tazobactam 3.375 GM in Sodium Chloride 0.9% 50 ML IV SCH ×2 (18:46→23:44)
[2018-11-02] MEDS ORDERED: Phenytoin 100 MG Cap.ER PO SCH (20:00)
[2018-11-02] MEDS ORDERED: PHENYTOIN 50 MG PO SCH (20:00)
[2018-11-02] MEDS: Atenolol 50 MG Tab PO SCH (20:40)
[2018-11-03] MEDS: Piperacillin/Tazobactam 3.375 GM in Sodium Chloride 0.9% 50 ML IV SCH ×2 (06:10→11:39)
[2018-11-03] MEDS: Atenolol 50 MG Tab PO SCH (07:50)
[2018-11-03 07:57] LABS: CHLORIDE,CL 101 mEq/L (98-106); SODIUM,NA 139 mEq/L (136-145)
[2018-11-03] MEDS ORDERED: Furosemide 40 MG Tab PO SCH (08:00)
[2018-11-03] MEDS ORDERED: Phenytoin 100 MG Cap.ER PO SCH (08:00)
[2018-11-03] MEDS ORDERED: Potassium Gluconate (99 MG) 2 MEQ Tab PO SCH (08:00)
[2018-11-03] MEDS ORDERED: Enoxaparin 40 MG/0.4 ML Syringe SUBCUT SCH (16:00)
--- NOTE | 2018-11-03 21:36 | PCM.DCSUM1 ---
Discharge Summary - Hospital Course Free Text/Narrative:: Patient initially presented to the clinic with complaints of pain and redness in his left lower extremity. He had noted chills the night prior, likely had a fever. He had noted over a 12 hour time period that his leg had become hot, red and tender. States couldn't even touch his leg without discomfort. Had edema in his legs, had not been taking his Lasix. WBC and CRP elevated on admit. Started on Unasyn initially and switched over to Zosyn. Has had good symptom improvement since admission. WBC stabilized, CRP improved down to 3. Transferred to swing bed for ongoing IV Zosyn. Diagnosis: Stroke: No Modified Sharif Scale: No Symptoms at All Modified Sharif Scale Score: 0 - Discharge Data Discharge Date: 11/03/18 Discharge Disposition: Home, Self-Care 01 Condition: Good - Patient Summary/Data Complications: none Hospital Course: Patient has had good improvement of his cellulitis of his left lower extremity. Redness was initially at the knee, now minimal redness even noted. No warmth. Edema down to 1+ left lower extremity, no edema in right leg. No open wounds noted. WBC and CRP normal range at this time. Had issues with diarrhea during acute stay, that has now resolved. Is ambulating about and tolerating well. Remains afebrile at this point. Discharge home on Clindamycin 150 mg QID for another week - Patient Instructions Diet: Usual Diet as Tolerated Activity: As Tolerated - Discharge Plan *PRESCRIPTION DRUG MONITORING PROGRAM REVIEWED*: No *COPY OF PRESCRIPTION DRUG MONITORING REPORT IN PATIENT JUDY: No Prescriptions/Med Rec: Clindamycin HCl 150 mg PO QID #28 capsule Home Medications: Home Meds Atenolol 50 mg PO BID 10/28/18 [History] Furosemide 40 mg PO DAILY PRN 10/28/18 [History] Multivit-Min/FA/Lycopen/Lutein [Centrum Silver Men Tablet] 1 tab PO DAILY [History] Phenytoin 50 mg PO BEDTIME 10/28/18 [History] Phenytoin Sodium Extended [Dilantin] 200 mg PO BEDTIME 10/28/18 [History] Phenytoin Sodium Extended [Dilantin] 200 mg PO WITHBREAKFAST 10/28/18 [History] Potassium 99 mg PO DAILY 10/28/18 [History] Clindamycin HCl 150 mg PO QID #28 capsule 11/03/18 [Rx] Referrals: Jong Chiu MD [Primary Care Provider] - (Hospital follow up in one week with Dr. Chiu) - Discharge Summary/Plan Comment DC Time >30 min.: No Discharge Summary/Plan Comment: Discharge home on Clindamycin QID - General Info Date of Service: 11/03/18 Admission Dx/Problem (Free Text: Cellulitis of LLE Functional Status: Reports: Pain Controlled, Tolerating Diet, Ambulating - Review of Systems General: Denies: Fever, Weakness, Fatigue HEENT: Reports: No Symptoms Pulmonary: Denies: Shortness of Breath Cardiovascular: Reports: Edema. Denies: Chest Pain, Lightheadedness Gastrointestinal: Denies: Abdominal Pain, Nausea, Vomiting Genitourinary: Reports: No Symptoms Musculoskeletal: Reports: Leg Pain Skin: Reports: Other (redness improving to LLE) Neurological: Reports: No Symptoms - Patient Data Vitals - Most Recent: Last Vital Signs Temp 97.3 F 11/03/18 08:00 Pulse 67 11/03/18 08:00 Resp 18 11/03/18 08:00 BP 141/78 H 11/03/18 08:00 Pulse Ox 92 L 11/03/18 08:00 Weight - Most Recent: 262 lb 3.2 oz Lab Results - Last 24 hrs: Laboratory Results - last 24 hr 11/03/18 11/03/18 11/03/18 Range/Units 07:00 07:00 07:22 WBC 6.2 (5.0-10.0) 10^3/uL RBC 4.29 L (4.50-6.00) 10^6/uL Hgb 13.3 L (14.0-18.0) g/dL Hct 40.2 (40.0-54.0) % MCV 93.7 (82.0-94.0) fL MCH 31.0 (27.0-32.0) pg MCHC 33.1 (33.0-38.0) g/dL RDW Coeff of Shelia 13.5 (11.0-15.0) % Plt Count 198 (150-400) 10^3/uL Neut % (Auto) 69.3 (35-85) % Lymph % (Auto) 17.7 (10-55) % [place] % (Auto) 8.7 (0-16) % Eos % (Auto) 3.7 (0-5) % Baso % (Auto) 0.6 (0-3) % Neut # (Auto) 4.30 (1.80-7.00) 10^3/uL Lymph # (Auto) 1.10 (1.00-4.80) 10^3/uL [place] # (Auto) 0.54 (0.00-0.80) 10^3/uL Eos # (Auto) 0.23 (0.00-0.45) 10^3/uL Baso # (Auto) 0.04 10^3/uL Sodium 139 (136-145) mEq/L Potassium 3.8 (3.5-5.0) mEq/L Chloride 101 (98-106) mEq/L Carbon Dioxide 30 (21-32) mmol/L BUN 16 (7-18) mg/dL Creatinine 1.0 (0.7-1.3) mg/dL Est Cr Clr Drug Dosing 62.79 mL/min Estimated GFR (MDRD) > 60 (>=60) mL/min Glucose 181 H (75-99) mg/dL POC Glucose 181 H (75-105) mg/dl Calcium 8.8 (8.4-10.1) mg/dL C-Reactive Protein 3.8 H (0.2-0.8) mg/dL Med Orders - Current: Current Medications Discontinued Medications Acetaminophen (Tylenol) 650 mg PO Q4H PRN PRN Reason: Pain (Mild 1-3)/fever Atenolol (Tenormin) 50 mg PO BID [facility] Last Admin: 11/03/18 07:50 Dose: 50 mg Enoxaparin Sodium (Lovenox) 40 mg SUBCUT 1600 [facility] Furosemide (Lasix) 40 mg PO DAILY [facility] Last Admin: 11/03/18 07:50 Dose: 40 mg Piperacillin Sod/Tazobactam (Sod 3.375 gm/ Sodium Chloride) 50 mls @ 100 mls/ hr IV Q6H [facility] Last Admin: 11/03/18 11:39 Dose: 100 mls/hr Phenytoin [Phenytoin (] 50mg Own Med ) 50 mg PO BEDTIME [facility] Last Admin: 11/02/18 20:40 Dose: 50 mg Phenytoin Sodium (Phenytoin) 200 mg PO BEDTIME [facility] Last Admin: 11/02/18 20:40 Dose: 200 mg Phenytoin Sodium (Phenytoin) 200 mg PO WITHBREAKFAST [facility] Last Admin: 11/03/18 07:49 Dose: 200 mg Potassium (Potassium Gluconate) 2 meq PO DAILY [facility] Last Admin: 11/03/18 07:50 Dose: 2 meq Sodium Chloride (Saline Flush) 10 ml FLUSH ASDIRECTED PRN PRN Reason: Keep Vein Open Sodium Chloride (Saline Flush) 10 ml FLUSH ASDIRECTED PRN PRN Reason: Keep Vein Open - Exam General: Reports: Alert, Oriented HEENT: Reports: Mucous Membr. Moist/[place] Neck: Reports: Supple Lungs: Reports: Clear to Auscultation, Normal Respiratory Effort Cardiovascular: Reports: Regular Rate, Regular Rhythm GI/Abdominal Exam: Normal Bowel Sounds, Soft, Non-Tender Extremities: Pedal Edema (1+ LLE) Wound/Incisions: Reports: Erythema Improving Neurological: Reports: No New Focal Deficit
== END 2018-11-03 14:20 | disposition home or self-care (01) | DRG 603 ==
LOC: UNDOADMIN 16:50 → CC.MS 16:50
PROVIDERS: ADMIT Family Medicine; ATTEND Family Medicine
DX: L03.116 Cellulitis of left lower limb (principal); Z79.899 Other long term (current) drug therapy
CPT/HCPCS: 36415; 80048; 82962; 85025; 86140; A9270-GY; J2543; J7050

== ENCOUNTER 2020-07-15 11:24 | Inpatient (IN) | payer MEDICARE, BC, OTHER ==
[2020-07-15] MEDS ORDERED: Acetaminophen 325 MG Tab PO ONE (12:12)
[2020-07-15 12:43] LABS: CHLORIDE,CL 94 mEq/L (98-106); SODIUM,NA 128 mEq/L (136-145)
[2020-07-15] MEDS ORDERED: Dexamethasone 4 MG/ML SDV IVPUSH SCH ×2 (16:00→16:15)
[2020-07-15] MEDS ORDERED: Iopamidol 755 Mg/ML 100 ML Bottle IVPUSH ONE (16:05)
[2020-07-15] MEDS ORDERED: Albuterol 8 GM Inhaler INH PRN (16:07)
[2020-07-15] MEDS ORDERED: Sodium Chloride 0.9% 1,000 ML IV SCH (16:15)
[2020-07-15] MEDS: Enoxaparin 40 MG/0.4 ML Syringe SUBCUT SCH (16:29)
[2020-07-15] MEDS: Atenolol 50 MG Tab PO SCH (19:28)
[2020-07-15] MEDS: PHENYTOIN 50 MG PO SCH (19:31)
[2020-07-15] MEDS: Phenytoin 100 MG Cap.ER PO SCH (19:31)
--- NOTE | 2020-07-16 00:18 | EDM.PDOC ---
ED HPI GENERAL MEDICAL PROBLEM - General Chief Complaint: General Stated Complaint: Weakness. COVID + Time Seen by Provider: 07/15/20 12:30 Source of Information: Reports: Patient, Family, RN, RN Notes Reviewed History Limitations: Reports: Other (difficulty hearing) - History of Present Illness INITIAL COMMENTS - FREE TEXT/NARRATIVE: Christopher is an 85 yo male who presents to the ED via [facility]. Christopher is known positive for Covid 19. He states he fell yesterday and again this morning. Was unable to get himself up and ended up laying on the floor for 3 hours. Family had stopped by and were able to assist with getting him back into his chair. Admits to increased weakness over the last few days and unable to eat or drink anything. Denies any pain or discomfort. No head trauma. No loss of consciousness. Location: Reports: Generalized - Related Data Allergies Allergy/AdvReac Type Severity Reaction Status Date / Time No Known Allergies Allergy Verified 07/15/20 11:33 Home Meds: Home Meds Furosemide 40 mg PO DAILY PRN 10/28/18 [History] Multivit-Min/FA/Lycopen/Lutein [Centrum Silver Men Tablet] 1 tab PO DAILY 10/28/18 [History] Phenytoin 50 mg PO BEDTIME 10/28/18 [History] Phenytoin Sodium Extended [Dilantin] 200 mg PO BEDTIME 10/28/18 [History] Phenytoin Sodium Extended [Dilantin] 200 mg PO WITHBREAKFAST 10/28/18 [History] Potassium 99 mg PO DAILY 10/28/18 [History] atenoloL [Atenolol] 50 mg PO BID 10/28/18 [History] Clindamycin HCl 150 mg PO QID #28 capsule 11/03/18 [Rx] Past Medical History HEENT History: Reports: Hard of Hearing Cardiovascular History: Reports: Hypertension Respiratory History: Reports: Other (See Below) (COVID 19) Neurological History: Reports: Head Trauma, Seizure - Past Surgical History HEENT Surgical History: Reports: Cataract Surgery, Other (See Below) (cochlear implant) GI Surgical History: Reports: Hernia, Abdominal Male Surgical History: Reports: Prostate Biopsy Social & Family History - Family History Family Medical History: Noncontributory - Tobacco Use Smoking Status *Q: Never Smoker Second Hand Smoke Exposure: No - Caffeine Use Caffeine Use: Reports: Coffee - Alcohol Use Alcohol Use History: Yes Alcohol Use Frequency: Socially - Recreational Drug Use Recreational Drug Use: No ED ROS GENERAL - Review of Systems Review Of Systems: See Below Constitutional: Reports: Chills, Weakness, Fatigue, Decreased Appetite. Denies: Fever HEENT: Reports: No Symptoms Respiratory: Reports: Shortness of Breath, Cough. Denies: Wheezing Cardiovascular: Denies: Chest Pain, Lightheadedness, Palpitations GI/Abdominal: Reports: Decreased Appetite, Nausea. Denies: Abdominal Pain, Black Stool, Constipation, Diarrhea, Hematemesis, Hematochezia, Vomiting : Reports: No Symptoms Musculoskeletal: Reports: No Symptoms Skin: Reports: No Symptoms Neurological: Reports: Weakness. Denies: Headache, Syncope ED EXAM, GENERAL - Physical Exam Exam: See Below Exam Limited By: No Limitations General Appearance: Alert, Mild Distress Eye Exam: Bilateral Eye: Normal Inspection Ears: Hearing Loss Nose: Normal Inspection, Normal Mucosa, No Blood Throat/Mouth: Normal Inspection, Normal Lips, Normal Oropharynx, Normal Voice, No Airway Compromise Head: Atraumatic, Normocephalic Neck: Normal Inspection, Supple Respiratory/Chest: No Accessory Muscle Use, Rhonchi (bilateral bases). No: Respiratory Distress, Accessory Muscle Use, Retractions Cardiovascular: Regular Rate, Rhythm, Systolic Murmur Extremities: Pedal Edema Psychiatric: Normal Affect, Normal Mood Skin Exam: Warm, Dry, Intact, Normal Color, No Rash Course - Vital Signs Last Recorded V/S: Last Vital Signs Temp 98.3 F 07/15/20 23:51 Pulse 67 07/15/20 23:51 Resp 20 07/15/20 23:51 BP 131/66 07/15/20 23:51 Pulse Ox 98 07/15/20 23:51 - Orders/Labs/Meds Orders: Active Orders 24 hr Category Date Time Status Ang Chest [CT] Stat Exams 07/15/20 12:52 Taken Chest 1V Frontal [CR] Stat Exams 07/15/20 11:36 Taken CULTURE BLOOD [BC] Routine Lab 07/15/20 12:16 Received CULTURE BLOOD [BC] Stat Lab 07/15/20 12:16 Received Medication Orders Albuterol (Ventolin Hfa) 0 gm INH QID PRN PRN Reason: Dyspnea Atenolol (Tenormin) 50 mg PO BID [facility] Last Admin: 07/15/20 19:28 Dose: 50 mg Documented by: NEIL Calcium Carbonate/Glycine (Tums) 0 mg PO QID PRN PRN Reason: HYPOCALCEMIA Dexamethasone (Dexamethasone) 6 mg IVPUSH DAILY@1600 [facility] Last Admin: 07/15/20 16:29 Dose: 6 mg Documented by: PRABHU Enoxaparin Sodium (Lovenox) 40 mg SUBCUT Q24H [facility] Last Admin: 07/15/20 16:29 Dose: 40 mg Documented by: PRABHU Furosemide (Lasix) 40 mg PO QAM [facility] Sodium Chloride (Normal Saline) 1,000 mls @ 125 mls/hr IV ASDIRECTED [facility] Stop: 07/17/20 00:14 Last Admin: 07/15/20 15:00 Dose: 125 mls/hr Documented by: PRABHU Phenytoin Chew 50mg (Ptom) 0 each PO BEDTIME [facility] Last Admin: 07/15/20 19:31 Dose: 1 each Documented by: NEIL Phenytoin Sodium (Phenytoin) 0 mg PO BID [facility] Last Admin: 07/15/20 19:31 Dose: 200 mg Documented by: NEIL Labs: Laboratory Tests 07/15/20 07/15/20 07/15/20 Range/Units 11:36 11:36 12:16 WBC 4.3 L (5.0-10.0) 10^3/uL RBC 4.49 L (4.50-6.00) 10^6/uL Hgb 14.9 (14.0-18.0) g/dL Hct 42.0 (40.0-54.0) % MCV 93.5 (82.0-94.0) fL MCH 33.2 H (27.0-32.0) pg MCHC 35.5 (33.0-38.0) g/dL RDW Coeff of Shelia 13.1 (11.0-15.0) % Plt Count 99 L (150-400) 10^3/uL Neut % (Auto) 78.9 (35-85) % Lymph % (Auto) 9.6 L (10-55) % [place] % (Auto) 11.5 (0-16) % Eos % (Auto) 0 (0-5) % Baso % (Auto) 0 (0-3) % Neut # (Auto) 3.37 (1.80-7.00) 10^3/uL Lymph # (Auto) 0.41 L (1.00-4.80) 10^3/uL [place] # (Auto) 0.49 (0.00-0.80) 10^3/uL Eos # (Auto) 0.00 (0.00-0.45) 10^3/uL Baso # (Auto) 0.00 10^3/uL D-Dimer, Quantitative 4.36 H (0.00-0.50) Sodium 128 L (136-145) mEq/L Potassium 3.9 (3.5-5.0) mEq/L Chloride 94 L (98-106) mEq/L Carbon Dioxide 27 (21-32) mmol/L BUN 20 H (7-18) mg/dL Creatinine 1.1 (0.7-1.3) mg/dL Est Cr Clr Drug Dosing 51.93 mL/min Estimated GFR (MDRD) > 60 (>=60) mL/min Glucose 205 H (75-99) mg/dL Lactic Acid (0.4-2.0) mmol/L Calcium 8.1 L (8.4-10.1) mg/dL Magnesium 1.9 (1.8-2.4) mg/dL Total Bilirubin 0.7 (0.0-1.0) mg/dL AST 20 (15-37) U/L ALT 16 (12-78) U/L Alkaline Phosphatase 99 (46-116) U/L Troponin I < 0.017 (0.00-0.06) ng/mL Total Protein 7.6 (6.4-8.2) g/dL Albumin 3.2 L (3.4-5.0) g/dL 07/15/20 Range/Units 12:16 WBC (5.0-10.0) 10^3/uL RBC (4.50-6.00) 10^6/uL Hgb (14.0-18.0) g/dL Hct (40.0-54.0) % MCV (82.0-94.0) fL MCH (27.0-32.0) pg MCHC (33.0-38.0) g/dL RDW Coeff of Shelia (11.0-15.0) % Plt Count (150-400) 10^3/uL Neut % (Auto) (35-85) % Lymph % (Auto) (10-55) % [place] % (Auto) (0-16) % Eos % (Auto) (0-5) % Baso % (Auto) (0-3) % Neut # (Auto) (1.80-7.00) 10^3/uL Lymph # (Auto) (1.00-4.80) 10^3/uL [place] # (Auto) (0.00-0.80) 10^3/uL Eos # (Auto) (0.00-0.45) 10^3/uL Baso # (Auto) 10^3/uL D-Dimer, Quantitative (0.00-0.50) Sodium (136-145) mEq/L Potassium (3.5-5.0) mEq/L Chloride (98-106) mEq/L Carbon Dioxide (21-32) mmol/L BUN (7-18) mg/dL Creatinine (0.7-1.3) mg/dL Est Cr Clr Drug Dosing mL/min Estimated GFR (MDRD) (>=60) mL/min Glucose (75-99) mg/dL Lactic Acid 1.6 (0.4-2.0) mmol/L Calcium (8.4-10.1) mg/dL Magnesium (1.8-2.4) mg/dL Total Bilirubin (0.0-1.0) mg/dL AST (15-37) U/L ALT (12-78) U/L Alkaline Phosphatase (46-116) U/L Troponin I (0.00-0.06) ng/mL Total Protein (6.4-8.2) g/dL Albumin (3.4-5.0) g/dL Meds: Medications Generic Name Dose Route Start Last Admin Trade Name Freq PRN Reason Stop Dose Admin Albuterol 0 gm 07/15/20 16:30 Ventolin Hfa INH QID PRN Dyspnea Atenolol 50 mg 07/15/20 20:00 07/15/20 19:28 Tenormin PO 50 mg BID ENRIQUE Administration Calcium Carbonate/Glycine 0 mg 07/15/20 15:37 Tums PO QID PRN HYPOCALCEMIA Dexamethasone 6 mg 07/15/20 16:00 07/15/20 16:29 Dexamethasone IVPUSH 6 mg DAILY@1600 ENRIQUE Administration Enoxaparin Sodium 40 mg 07/15/20 16:30 07/15/20 16:29 Lovenox SUBCUT 40 mg Q24H ENRIQUE Administration Furosemide 40 mg 07/16/20 08:00 Lasix PO QAM ENRIQUE Sodium Chloride 1,000 mls @ 125 mls/hr 07/15/20 16:15 07/15/20 15:00 Normal Saline IV 07/17/20 00:14 125 mls/hr ASDIRECTED ENRIQUE Administration Phenytoin Chew 50mg 0 each 07/15/20 20:00 07/15/20 19:31 Ptom PO 1 each BEDTIME ENRIQUE Administration Phenytoin Sodium 0 mg 07/15/20 20:00 07/15/20 19:31 Phenytoin PO 200 mg BID ENRIQUE Administration Discontinued Medications Generic Name Dose Route Start Last Admin Trade Name Freq PRN Reason Stop Dose Admin Acetaminophen 650 mg 07/15/20 12:12 07/15/20 12:15 Tylenol PO 07/15/20 12:13 650 mg NOW ONE Administration Albuterol 0 gm 07/15/20 16:07 Ventolin Hfa INH Q4H PRN Dyspnea Dexamethasone 6 mg 07/15/20 16:15 07/15/20 16:28 Dexamethasone IVPUSH Not Given DAILY [facility] Iopamidol 100 ml 07/15/20 16:05 07/15/20 16:11 Isovue-370 (76%) IVPUSH 07/15/20 16:06 100 ml ONETIME ONE Administration - Radiology Interpretation Free Text/Narrative:: CTA chest negative for PE. Does show bilateral lower lobe infiltrate d/t viral etiology. Radiologist admits it typically is what is seen with active COVID. Departure - Departure Time of Disposition: 13:50 Disposition: Admitted As Inpatient 64 Clinical Impression: Pneumonia, Respiratory infection - Discharge Information Sepsis Event Note (ED) - Evaluation Sepsis Screening Result: No Definite Risk - Focused Exam Vital Signs: Vital Signs Temp Pulse Resp BP Pulse Ox 07/15/20 13:56 98.9 F 74 28 H 133/74 97 07/15/20 12:16 82 32 H 138/76 96 - Problem List & Annotations (1) COVID-19 SNOMED Code(s): 665724011 Code(s): U07.1 - COVID-19 Status: Acute Current Visit: Yes (2) Hyponatremia SNOMED Code(s): 29588511 Code(s): E87.1 - HYPO-OSMOLALITY AND HYPONATREMIA Status: Acute Current Visit: Yes (3) Weakness SNOMED Code(s): 18843303 Code(s): R53.1 - WEAKNESS Status: Acute Current Visit: Yes (4) Palliative care patient SNOMED Code(s): 896390712, 592916534 Code(s): Z51.5 - ENCOUNTER FOR PALLIATIVE CARE Status: Acute Current Visit: Yes - My Orders Last 24 Hours: My Active Orders 07/15/20 11:36 Chest 1V Frontal [CR] Stat 07/15/20 12:16 CULTURE BLOOD [BC] Stat 07/15/20 12:52 Ang Chest [CT] Stat - Assessment/Plan Admission H&P: Please use this note as an admission H&P Last 24 Hours: My Active Orders 07/15/20 11:36 Chest 1V Frontal [CR] Stat 07/15/20 12:16 CULTURE BLOOD [BC] Stat 07/15/20 12:52 Ang Chest [CT] Stat Plan: Laboratory work overall is stable at this time. Consulted with Dr. Chiu in regards to Christopher's condition. Dr. Chiu was in agreement with admission as patient is a Code Level 2 status. Discussed into detail Christopher's wishes with DPOA (Lani) which both her and Christopher agreed he did not want to be transferred to higher level of care. Discussed the seriousness of Christopher's condition with Christopher and he verbalized understanding of risks of not being transferred to higher level of care. Patient has been stable during entire time in ED and transferred to floor in satisfactory condition. Vital signs stable. Will initiate IV dexamethasone and normal saline. Discussed patient with sponge hooker provider.
[2020-07-16] MEDS: Phenytoin 100 MG Cap.ER PO SCH ×2 (07:37→19:12)
[2020-07-16] MEDS: Atenolol 50 MG Tab PO SCH ×2 (07:38→19:13)
[2020-07-16] MEDS: Furosemide 40 MG Tab PO SCH (07:38)
[2020-07-16] MEDS: Acetaminophen 325 MG Tab PO PRN ×2 (08:10→19:17)
[2020-07-16 08:16] LABS: CHLORIDE,CL 94 mEq/L (98-106); SODIUM,NA 129 mEq/L (136-145)
--- NOTE | 2020-07-16 09:10 | PCM.PN ---
- General Info Date of Service: 07/16/20 Functional Status: Reports: Pain Controlled, Tolerating Diet (decreased apetite, but ate about 50% breakfast), Ambulating (With nurse and assisted with holding objects in the room) Pain Score: 0 - Review of Systems General: Reports: Fever, Weakness (generally), Fatigue, Appetite (decreased) HEENT: Reports: No Symptoms. Denies: Headaches, Post Nasal Drip, Sinus Congestion, Sore Throat, Rhinitis Pulmonary: Reports: Shortness of Breath, Cough (about every 4 hours per patient), Sputum. Denies: Pleuritic Chest Pain, Hemoptysis, Wheezing Cardiovascular: Reports: No Symptoms Gastrointestinal: Reports: Diarrhea. Denies: Nausea, Vomiting Genitourinary: Reports: No Symptoms Musculoskeletal: Reports: No Symptoms Skin: Reports: No Symptoms Neurological: Reports: No Symptoms. Denies: Confusion, Dizziness, Headache, Trouble Speaking Psychiatric: Reports: No Symptoms - Patient Data Vitals - Most Recent: Last Vital Signs Temp 99.2 F 07/16/20 08:33 Pulse 78 07/16/20 08:00 Resp 20 07/16/20 08:00 BP 144/74 H 07/16/20 08:00 Pulse Ox 93 L 07/16/20 08:00 Weight - Most Recent: 233 lb 8 oz Lab Results Last 24 Hours: Laboratory Results - last 24 hr 07/15/20 07/15/20 07/15/20 Range/Units 11:36 11:36 12:16 WBC 4.3 L (5.0-10.0) 10^3/uL RBC 4.49 L (4.50-6.00) 10^6/uL Hgb 14.9 (14.0-18.0) g/dL Hct 42.0 (40.0-54.0) % MCV 93.5 (82.0-94.0) fL MCH 33.2 H (27.0-32.0) pg MCHC 35.5 (33.0-38.0) g/dL RDW Coeff of Shelia 13.1 (11.0-15.0) % Plt Count 99 L (150-400) 10^3/uL Neut % (Auto) 78.9 (35-85) % Lymph % (Auto) 9.6 L (10-55) % [place] % (Auto) 11.5 (0-16) % Eos % (Auto) 0 (0-5) % Baso % (Auto) 0 (0-3) % Neut # (Auto) 3.37 (1.80-7.00) 10^3/uL Lymph # (Auto) 0.41 L (1.00-4.80) 10^3/uL [place] # (Auto) 0.49 (0.00-0.80) 10^3/uL Eos # (Auto) 0.00 (0.00-0.45) 10^3/uL Baso # (Auto) 0.00 10^3/uL D-Dimer, Quantitative 4.36 H (0.00-0.50) Sodium 128 L (136-145) mEq/L Potassium 3.9 (3.5-5.0) mEq/L Chloride 94 L (98-106) mEq/L Carbon Dioxide 27 (21-32) mmol/L BUN 20 H (7-18) mg/dL Creatinine 1.1 (0.7-1.3) mg/dL Est Cr Clr Drug Dosing 51.93 mL/min Estimated GFR (MDRD) > 60 (>=60) mL/min Glucose 205 H (75-99) mg/dL Lactic Acid (0.4-2.0) mmol/L Calcium 8.1 L (8.4-10.1) mg/dL Magnesium 1.9 (1.8-2.4) mg/dL Total Bilirubin 0.7 (0.0-1.0) mg/dL AST 20 (15-37) U/L ALT 16 (12-78) U/L Alkaline Phosphatase 99 (46-116) U/L Troponin I < 0.017 (0.00-0.06) ng/mL C-Reactive Protein (0.2-0.8) mg/dL Total Protein 7.6 (6.4-8.2) g/dL Albumin 3.2 L (3.4-5.0) g/dL 07/15/20 07/16/20 07/16/20 Range/Units 12:16 07:55 07:55 WBC 4.3 L (5.0-10.0) 10^3/uL RBC 4.16 L (4.50-6.00) 10^6/uL Hgb 13.7 L (14.0-18.0) g/dL Hct 39.5 L (40.0-54.0) % MCV 95.0 H (82.0-94.0) fL MCH 32.9 H (27.0-32.0) pg MCHC 34.7 (33.0-38.0) g/dL RDW Coeff of Shelia 12.9 (11.0-15.0) % Plt Count 100 L (150-400) 10^3/uL Neut % (Auto) 79.7 (35-85) % Lymph % (Auto) 11.0 (10-55) % [place] % (Auto) 8.9 (0-16) % Eos % (Auto) 0.2 (0-5) % Baso % (Auto) 0.2 (0-3) % Neut # (Auto) 3.41 (1.80-7.00) 10^3/uL Lymph # (Auto) 0.47 L (1.00-4.80) 10^3/uL [place] # (Auto) 0.38 (0.00-0.80) 10^3/uL Eos # (Auto) 0.01 (0.00-0.45) 10^3/uL Baso # (Auto) 0.01 10^3/uL D-Dimer, Quantitative (0.00-0.50) Sodium (136-145) mEq/L Potassium (3.5-5.0) mEq/L Chloride (98-106) mEq/L Carbon Dioxide (21-32) mmol/L BUN (7-18) mg/dL Creatinine (0.7-1.3) mg/dL Est Cr Clr Drug Dosing mL/min Estimated GFR (MDRD) (>=60) mL/min Glucose (75-99) mg/dL Lactic Acid 1.6 (0.4-2.0) mmol/L Calcium (8.4-10.1) mg/dL Magnesium (1.8-2.4) mg/dL Total Bilirubin (0.0-1.0) mg/dL AST (15-37) U/L ALT (12-78) U/L Alkaline Phosphatase (46-116) U/L Troponin I (0.00-0.06) ng/mL C-Reactive Protein 20.4 H (0.2-0.8) mg/dL Total Protein (6.4-8.2) g/dL Albumin (3.4-5.0) g/dL 07/16/20 Range/Units 07:55 WBC (5.0-10.0) 10^3/uL RBC (4.50-6.00) 10^6/uL Hgb (14.0-18.0) g/dL Hct (40.0-54.0) % MCV (82.0-94.0) fL MCH (27.0-32.0) pg MCHC (33.0-38.0) g/dL RDW Coeff of Shelia (11.0-15.0) % Plt Count (150-400) 10^3/uL Neut % (Auto) (35-85) % Lymph % (Auto) (10-55) % [place] % (Auto) (0-16) % Eos % (Auto) (0-5) % Baso % (Auto) (0-3) % Neut # (Auto) (1.80-7.00) 10^3/uL Lymph # (Auto) (1.00-4.80) 10^3/uL [place] # (Auto) (0.00-0.80) 10^3/uL Eos # (Auto) (0.00-0.45) 10^3/uL Baso # (Auto) 10^3/uL D-Dimer, Quantitative (0.00-0.50) Sodium 129 L (136-145) mEq/L Potassium 3.9 (3.5-5.0) mEq/L Chloride 94 L (98-106) mEq/L Carbon Dioxide 27 (21-32) mmol/L BUN 16 (7-18) mg/dL Creatinine 0.8 (0.7-1.3) mg/dL Est Cr Clr Drug Dosing 71.40 mL/min Estimated GFR (MDRD) > 60 (>=60) mL/min Glucose 153 H D (75-99) mg/dL Lactic Acid (0.4-2.0) mmol/L Calcium 7.7 L (8.4-10.1) mg/dL Magnesium (1.8-2.4) mg/dL Total Bilirubin (0.0-1.0) mg/dL AST (15-37) U/L ALT (12-78) U/L Alkaline Phosphatase (46-116) U/L Troponin I (0.00-0.06) ng/mL C-Reactive Protein (0.2-0.8) mg/dL Total Protein (6.4-8.2) g/dL Albumin (3.4-5.0) g/dL Med Orders - Current: Current Medications Acetaminophen (Tylenol) 650 mg PO Q4H PRN PRN Reason: Fever Last Admin: 07/16/20 08:10 Dose: 650 mg Documented by: Albuterol (Ventolin Hfa) 0 gm INH QID PRN PRN Reason: Dyspnea Atenolol (Tenormin) 50 mg PO BID [facility] Last Admin: 07/16/20 07:38 Dose: 50 mg Documented by: Calcium Carbonate/Glycine (Tums) 0 mg PO QID PRN PRN Reason: HYPOCALCEMIA Dexamethasone (Dexamethasone) 6 mg PO DAILY@1600 [facility] Enoxaparin Sodium (Lovenox) 40 mg SUBCUT Q24H [facility] Last Admin: 07/15/20 16:29 Dose: 40 mg Documented by: Furosemide (Lasix) 40 mg PO QAM [facility] Last Admin: 07/16/20 07:38 Dose: 40 mg Documented by: Sodium Chloride (Normal Saline) 1,000 mls @ 125 mls/hr IV ASDIRECTED [facility] Stop: 07/17/20 00:14 Last Admin: 07/15/20 15:00 Dose: 125 mls/hr Documented by: Phenytoin Chew 50mg (Ptom) 0 each PO BEDTIME [facility] Last Admin: 07/15/20 19:31 Dose: 1 each Documented by: Phenytoin Sodium (Phenytoin) 0 mg PO BID [facility] Last Admin: 07/16/20 07:37 Dose: 200 mg Documented by: Discontinued Medications Acetaminophen (Tylenol) 650 mg PO NOW ONE Stop: 07/15/20 12:13 Last Admin: 07/15/20 12:15 Dose: 650 mg Documented by: Albuterol (Ventolin Hfa) 0 gm INH Q4H PRN PRN Reason: Dyspnea Dexamethasone (Dexamethasone) 6 mg IVPUSH DAILY [facility] Last Admin: 07/15/20 16:28 Dose: Not Given Documented by: Dexamethasone (Dexamethasone) 6 mg IVPUSH DAILY@1600 [facility] Last Admin: 07/15/20 16:29 Dose: 6 mg Documented by: Iopamidol (Isovue-[id number] (76%)) 100 ml IVPUSH ONETIME ONE Stop: 07/15/20 16:06 Last Admin: 07/15/20 16:11 Dose: 100 ml Documented by: - Exam General: Alert, Oriented, Cooperative, No Acute Distress HEENT: Other (Difficulty hearing) Neck: Supple, Trachea Midline, No JVD Lungs: Normal Respiratory Effort, Rhonchi (moderately throughout) Cardiovascular: Regular Rate, Regular Rhythm GI/Abdominal Exam: Soft, Non-Tender Back Exam: Normal Inspection Extremities: Normal Inspection, Normal Range of Motion, Non-Tender, Normal Capillary Refill, Pedal Edema (+1 BLE) Peripheral Pulses: 2+: Radial (L), Radial (R), Posterior Tibial (L), Posterior Tibial (R), Dorsalis Pedis (L), Dorsalis Pedis (R) Skin: Warm, Dry, Intact Neurological: No New Focal Deficit Psy/Mental Status: Alert, Normal Affect, Normal Mood Sepsis Event Note - Evaluation Sepsis Screening Result: No Definite Risk - Focused Exam Vital Signs: Vital Signs Temp Pulse Pulse Resp BP BP BP 07/16/20 08:33 99.2 F 07/16/20 08:00 100.0 F 78 20 144/74 H 07/16/20 07:38 78 144/74 H 07/16/20 04:00 98.6 F 79 18 07/15/20 23:51 98.3 F 67 20 131/66 Pulse Ox 07/16/20 08:33 07/16/20 08:00 93 L 07/16/20 07:38 07/16/20 04:00 97 07/15/20 23:51 98 - Problem List Review Problem List Initiated/Reviewed/Updated: Yes - My Orders Last 24 Hours: My Active Orders 07/16/20 16:00 dexAMETHasone [Dexamethasone] 6 mg PO DAILY@1600 - Plan Plan:: This patient was admitted yesterday with COVID. He was admitted due to living at home alone and fell x2 in the last 24 hours without injury. The patient was tested on 07/11 for COVID. The patient was admitted. The patient continues today to have general weakness. Patient is not able to get up from the chair without a nurse assist. He is able to put weight on both feet and assist himself to the bedside toilet. However, the patient requires a lot of assistance form the nurse and also holds onto every item along the way to help support himself. There is no way at this time this patient could safely return to the his home due to fall risk. The patient reports that he does not feel that short of breath. He reports that he just feels weak. He does report loss of taste and a couple episodes of loose stool with urinating. The patient is alert and oriented. The patient labs yesterday were 4.3, platelets 99, sodium 128, chloride 94, lactic 1.6, ca 8.1, CRP 20.4. His temperature was 100.0, Oxygen saturation this morning was 97% on 2 L NC, and transitioned to Room Air at 800am at 93%. At this time, will continue Room Air to see if maintains his oxygen saturation. He is not distressed and no complaints of shortness of breath. Respiratory rate of 22. I discontinued fluids after 1 L NS due to heart failure history and edema. I will change his dexamethasone to PO, as his oral intake has been good. I believe this patient will remain acute status, admit at least until Saturday. Saturday, could evaluate for [place] [facility] plan for this patient with PT/OT to evaluate. I have also reviewed his CXR which shows Viral infiltrates consistent with COVID. No abx tx at this time. Discussed with patient the plan and he is acceptable to this. Also, due to patient cochlear implant and difficulty with hearing, all conversation I did, was on a white wash board and patient responded verbally. We do not have remdesivir to give the patient.
[2020-07-16] MEDS: Dexamethasone 4 MG Tab PO SCH (15:12)
[2020-07-16] MEDS: Enoxaparin 40 MG/0.4 ML Syringe SUBCUT SCH (15:52)
[2020-07-16] MEDS ORDERED: Dexamethasone 4 MG/ML SDV PO SCH (16:00)
[2020-07-16] MEDS: PHENYTOIN 50 MG PO SCH (19:12)
[2020-07-17] MEDS: Acetaminophen 325 MG Tab PO PRN ×2 (02:10→16:42)
[2020-07-17] MEDS: Furosemide 40 MG Tab PO SCH (07:24)
[2020-07-17] MEDS: Phenytoin 100 MG Cap.ER PO SCH ×2 (07:25→19:48)
[2020-07-17] MEDS: Atenolol 50 MG Tab PO SCH ×2 (07:25→19:49)
[2020-07-17 08:15] LABS: CHLORIDE,CL 91 mEq/L (98-106); SODIUM,NA 127 mEq/L (136-145)
[2020-07-17] MEDS: Enoxaparin 40 MG/0.4 ML Syringe SUBCUT SCH ×2 (11:35→19:49)
[2020-07-17] MEDS ORDERED: Sodium Chloride 0.9% 250 ML IV SCH (12:30)
[2020-07-17] MEDS: Sodium Chloride 0.9% 250 ML IV SCH ×3 (12:40→19:49)
--- NOTE | 2020-07-17 13:24 | PCM.PN ---
- General Info Date of Service: 07/17/20 Functional Status: Reports: Pain Controlled, Other (decreased appetite and not drinking as well) - Review of Systems General: Reports: Weakness, Fatigue, Malaise, Chills, Appetite (decreased) HEENT: Reports: No Symptoms Pulmonary: Reports: Shortness of Breath (ocassional) Cardiovascular: Reports: No Symptoms. Denies: Chest Pain, Lightheadedness Gastrointestinal: Reports: No Symptoms Genitourinary: Reports: No Symptoms Musculoskeletal: Reports: No Symptoms Skin: Reports: No Symptoms Neurological: Reports: Other (drowsy) Psychiatric: Reports: No Symptoms - Patient Data Vitals - Most Recent: Last Vital Signs Temp 99.3 F 07/17/20 11:54 Pulse 77 07/17/20 11:54 Resp 18 07/17/20 11:54 BP 134/68 07/17/20 11:54 Pulse Ox 95 07/17/20 11:54 Weight - Most Recent: 233 lb 8 oz Lab Results Last 24 Hours: Laboratory Results - last 24 hr 07/17/20 07/17/20 07/17/20 Range/Units 07:55 07:55 07:55 WBC 4.1 L (5.0-10.0) 10^3/uL RBC 4.35 L (4.50-6.00) 10^6/uL Hgb 14.4 (14.0-18.0) g/dL Hct 40.9 (40.0-54.0) % MCV 94.0 (82.0-94.0) fL MCH 33.1 H (27.0-32.0) pg MCHC 35.2 (33.0-38.0) g/dL RDW Coeff of Shelia 12.8 (11.0-15.0) % Plt Count 128 L (150-400) 10^3/uL Neut % (Auto) 83.1 (35-85) % Lymph % (Auto) 9.3 L (10-55) % [place] % (Auto) 7.4 (0-16) % Eos % (Auto) 0 (0-5) % Baso % (Auto) 0.2 (0-3) % Neut # (Auto) 3.38 (1.80-7.00) 10^3/uL Lymph # (Auto) 0.38 L (1.00-4.80) 10^3/uL [place] # (Auto) 0.30 (0.00-0.80) 10^3/uL Eos # (Auto) 0.00 (0.00-0.45) 10^3/uL Baso # (Auto) 0.01 10^3/uL Sodium 127 L (136-145) mEq/L Potassium 3.6 (3.5-5.0) mEq/L Chloride 91 L (98-106) mEq/L Carbon Dioxide 29 (21-32) mmol/L BUN 14 (7-18) mg/dL Creatinine 0.9 (0.7-1.3) mg/dL Est Cr Clr Drug Dosing 63.47 mL/min Estimated GFR (MDRD) > 60 (>=60) mL/min Glucose 165 H (75-99) mg/dL Calcium 7.9 L (8.4-10.1) mg/dL C-Reactive Protein 24.8 H (0.2-0.8) mg/dL Alex Results Last 24 Hours: Microbiology 07/15/20 12:16 Aerobic Blood Culture - Preliminary Blood NO GROWTH AFTER 2 DAYS Anaerobic Blood Culture - Preliminary NO GROWTH AFTER 2 DAYS 07/15/20 12:16 Aerobic Blood Culture - Preliminary Blood NO GROWTH AFTER 2 DAYS Anaerobic Blood Culture - Preliminary NO GROWTH AFTER 2 DAYS Med Orders - Current: Current Medications Acetaminophen (Tylenol) 650 mg PO Q4H PRN PRN Reason: Fever Last Admin: 07/17/20 02:10 Dose: 650 mg Documented by: Albuterol (Ventolin Hfa) 0 gm INH QID PRN PRN Reason: Dyspnea Atenolol (Tenormin) 50 mg PO BID [facility] Last Admin: 07/17/20 07:25 Dose: 50 mg Documented by: Calcium Carbonate/Glycine (Tums) 0 mg PO QID PRN PRN Reason: HYPOCALCEMIA Dexamethasone (Dexamethasone) 6 mg PO DAILY@1600 [facility] Last Admin: 07/16/20 15:12 Dose: 6 mg Documented by: Enoxaparin Sodium (Lovenox) 40 mg SUBCUT BID [facility] Last Admin: 07/17/20 11:35 Dose: 40 mg Documented by: Furosemide (Lasix) 40 mg PO QAM [facility] Last Admin: 07/17/20 07:24 Dose: 40 mg Documented by: Sodium Chloride (Normal Saline) 250 mls @ 250 mls/hr IV Q4H [facility] Stop: 07/18/20 09:44 Last Admin: 07/17/20 12:40 Dose: 250 mls/hr Documented by: Phenytoin Chew 50mg (Ptom) 0 each PO BEDTIME [facility] Last Admin: 07/16/20 19:12 Dose: 1 each Documented by: Phenytoin Sodium (Phenytoin) 0 mg PO BID [facility] Last Admin: 07/17/20 07:25 Dose: 200 mg Documented by: Discontinued Medications Acetaminophen (Tylenol) 650 mg PO NOW ONE Stop: 07/15/20 12:13 Last Admin: 07/15/20 12:15 Dose: 650 mg Documented by: Albuterol (Ventolin Hfa) 0 gm INH Q4H PRN PRN Reason: Dyspnea Dexamethasone (Dexamethasone) 6 mg IVPUSH DAILY [facility] Last Admin: 07/15/20 16:28 Dose: Not Given Documented by: Dexamethasone (Dexamethasone) 6 mg IVPUSH DAILY@1600 [facility] Last Admin: 07/15/20 16:29 Dose: 6 mg Documented by: Dexamethasone (Dexamethasone) 6 mg PO DAILY@1600 [facility] Enoxaparin Sodium (Lovenox) 40 mg SUBCUT Q24H [facility] Last Admin: 07/16/20 15:52 Dose: 40 mg Documented by: Sodium Chloride (Normal Saline) 1,000 mls @ 125 mls/hr IV ASDIRECTED [facility] Stop: 07/17/20 00:14 Last Admin: 07/15/20 15:00 Dose: 125 mls/hr Documented by: Sodium Chloride (Normal Saline) 250 mls @ 250 mls/hr IV Q4H [facility] Stop: 07/18/20 09:29 Last Admin: 07/17/20 12:33 Dose: Not Given Documented by: Iopamidol (Isovue-370 (76%)) 100 ml IVPUSH ONETIME ONE Stop: 07/15/20 16:06 Last Admin: 07/15/20 16:11 Dose: 100 ml Documented by: - Exam General: Alert (drowsy. but arrousable.), Oriented, Cooperative Neck: Supple, Trachea Midline, No JVD Lungs: Normal Respiratory Effort, Rhonchi (throughout) Cardiovascular: Regular Rate, Regular Rhythm GI/Abdominal Exam: Soft, Non-Tender Extremities: Normal Inspection, Normal Range of Motion, Non-Tender, Normal Capillary Refill, Pedal Edema (+1 BLE) Peripheral Pulses: 2+: Radial (L), Radial (R), Posterior Tibial (L), Posterior Tibial (R), Dorsalis Pedis (L), Dorsalis Pedis (R) Skin: Warm, Dry, Intact Neurological: No New Focal Deficit, Normal Speech, Sensation Intact, Other (Patient is drowsy, but arrousable.) Psy/Mental Status: Alert, Normal Affect, Normal Mood Sepsis Event Note - Evaluation Sepsis Screening Result: No Definite Risk - Focused Exam Vital Signs: Vital Signs Temp Pulse Pulse Resp BP BP Pulse Ox 07/17/20 11:54 99.3 F 77 18 134/68 95 07/17/20 08:00 98.5 F 73 20 133/58 L 93 L 07/17/20 07:25 73 133/58 L 07/17/20 03:46 100 F 66 18 123/54 L 93 L - Problem List Review Problem List Initiated/Reviewed/Updated: Yes - My Orders Last 24 Hours: My Active Orders 07/16/20 16:00 dexAMETHasone 6 mg PO DAILY@1600 07/17/20 11:39 OSMOLALITY - URINE Stat 07/17/20 11:45 Enoxaparin [Lovenox] 40 mg SUBCUT BID 07/17/20 12:45 Sodium Chloride 0.9% [Normal Saline] 250 ml IV Q4H 07/18/20 05:00 BASIC METABOLIC PANEL,BMP [CHEM] DAILY CBC WITH AUTO DIFF [HEME] DAILY - Plan Plan:: 07/16/20 0815am This patient was admitted yesterday with COVID. He was admitted due to living at home alone and fell x2 in the last 24 hours without injury. The patient was tested on 07/11 for COVID. The patient was admitted. The patient continues today to have general weakness. Patient is not able to get up from the chair without a nurse assist. He is able to put weight on both feet and assist himself to the bedside toilet. However, the patient requires a lot of assistance form the nurse and also holds onto every item along the way to help support himself. There is no way at this time this patient could safely return to the his home due to fall risk. The patient reports that he does not feel that short of breath. He reports that he just feels weak. He does report loss of taste and a couple episodes of loose stool with urinating. The patient is alert and oriented. The patient labs yesterday were 4.3, platelets 99, sodium 128, chloride 94, lactic 1.6, ca 8.1, CRP 20.4. His temperature was 100.0, Oxygen saturation this morning was 97% on 2 L NC, and transitioned to Room Air at 800am at 93%. At this time, will continue Room Air to see if maintains his oxygen saturation. He is not distressed and no complaints of shortness of breath. Respiratory rate of 22. I discontinued fluids after 1 L NS due to heart failure history and edema. I will change his dexamethasone to PO, as his oral intake has been good. I believe this patient will remain acute status, admit at least until Saturday. Saturday, could evaluate for adjunct faculty for medical terminology plan for this patient with PT/OT to evaluate. I have also reviewed his CXR which shows Viral infiltrates consistent with COVID. No abx tx at this time. Discussed with patient the plan and he is acceptable to this. Al so, due to patient cochlear implant and difficulty with hearing, all conversation I did, was on a white wash board and patient responded verbally. We do not have remdesivir to give the patient. 07/17/20 1205pm The patient today is more drowsy than yesterday. He does open eyes when I talk to him and does answer my questions appropriately when I use the dry erase board. Once I ask one question, he goes back to sleep, then arouse and he awakes easily. The patient is oriented x3. She is able to currently make his own medical decisions. The patient sodium today continues to be low at 127 and chlo ride 91. The patient appetite has not been good, he is not eating much and not drinking many fluids. He reports that he has no taste and does not feel like eating. I have changed his Lovenox to 40mg BID due to elevated d-dimer with COVID. I spoke to the patent about transfer, but he is very adament that wants to stay in [place]. He also continues to report he does not want machines to keep him alive. I called and spoke to hospitalist at [facility] about patient. He reports patient with COVID and hypovalemia to give NS 250ml bolus every 4 hours for a 24 hour period. He also reports this patient may go into fluid overload and hypoxia will become the next problem due to COVID. I called and spoke to Lani the daughter LUIS about this patient and his care. She understands risk with fluid replacement and patient condition and his refusal to transfer. We also discussed other tx of antiviral and plasma, that we do not have here. Lani is aware of all risk vs benefits. Will do the fluids and continue admit. Will recheck labs in the morning. Patient is aware and agrees with treatment plan. IT IS A POSSIBILITY THIS PATIENT COULD DURING THIS ADMIT. PALLIATIVE CARE. PATIENT HAS COMORBIDITIES SUCH HEART FAILURE AND HTN, NOW COMPLICATED WITH COVID.
[2020-07-17] MEDS: Dexamethasone 4 MG Tab PO SCH (16:25)
[2020-07-17] MEDS: PHENYTOIN 50 MG PO SCH (19:48)
[2020-07-18] MEDS: Sodium Chloride 0.9% 250 ML IV SCH ×3 (00:46→08:21)
[2020-07-18] MEDS: Phenytoin 100 MG Cap.ER PO SCH ×2 (07:39→19:34)
[2020-07-18] MEDS: Furosemide 40 MG Tab PO SCH (07:40)
[2020-07-18] MEDS: Enoxaparin 40 MG/0.4 ML Syringe SUBCUT SCH ×2 (07:40→19:33)
[2020-07-18 08:17] LABS: CHLORIDE,CL 92 mEq/L (98-106); SODIUM,NA 127 mEq/L (136-145)
[2020-07-18] MEDS: Atenolol 50 MG Tab PO SCH ×2 (08:20→21:19)
--- NOTE | 2020-07-18 11:13 | PCM.PN ---
- General Info Date of Service: 07/18/20 Admission Dx/Problem (Free Text): Viral Pneumonia Weakness COVID 19 Functional Status: Reports: Pain Controlled, Ambulating. Denies: Tolerating Diet - Review of Systems General: Reports: Weakness, Fatigue, Malaise. Denies: Fever HEENT: Reports: No Symptoms Pulmonary: Reports: Shortness of Breath, Cough Cardiovascular: Reports: No Symptoms Gastrointestinal: Denies: Diarrhea, Nausea, Vomiting Genitourinary: Reports: No Symptoms Musculoskeletal: Reports: No Symptoms Skin: Reports: No Symptoms Neurological: Reports: Weakness - Patient Data Vitals - Most Recent: Last Vital Signs Temp 98.7 F 07/18/20 08:00 Pulse 82 07/18/20 08:20 Resp 20 07/18/20 08:00 BP 150/80 H 07/18/20 08:20 Pulse Ox 93 L 07/18/20 08:27 Weight - Most Recent: 233 lb 8 oz I&O - Last 24 Hours: Intake & Output 07/17/20 07/18/20 07/18/20 22:59 06:59 14:59 Intake Total 500 500 Balance 500 500 Lab Results Last 24 Hours: Laboratory Results - last 24 hr 07/18/20 07/18/20 Range/Units 05:00 08:00 WBC 3.8 L (5.0-10.0) 10^3/uL RBC 4.45 L (4.50-6.00) 10^6/uL Hgb 14.6 (14.0-18.0) g/dL Hct 41.1 (40.0-54.0) % MCV 92.4 (82.0-94.0) fL MCH 32.8 H (27.0-32.0) pg MCHC 35.5 (33.0-38.0) g/dL RDW Coeff of Shelia 12.8 (11.0-15.0) % Plt Count 136 L (150-400) 10^3/uL Neut % (Auto) 83.4 (35-85) % Lymph % (Auto) 11.2 (10-55) % [place] % (Auto) 5.1 (0-16) % Eos % (Auto) 0 (0-5) % Baso % (Auto) 0.3 (0-3) % Neut # (Auto) 3.13 (1.80-7.00) 10^3/uL Lymph # (Auto) 0.42 L (1.00-4.80) 10^3/uL [place] # (Auto) 0.19 (0.00-0.80) 10^3/uL Eos # (Auto) 0.00 (0.00-0.45) 10^3/uL Baso # (Auto) 0.01 10^3/uL Sodium 127 L (136-145) mEq/L Potassium 3.5 (3.5-5.0) mEq/L Chloride 92 L (98-106) mEq/L Carbon Dioxide 29 (21-32) mmol/L BUN 12 (7-18) mg/dL Creatinine 0.9 (0.7-1.3) mg/dL Est Cr Clr Drug Dosing 63.47 mL/min Estimated GFR (MDRD) > 60 (>=60) mL/min Glucose 182 H (75-99) mg/dL Calcium 7.6 L (8.4-10.1) mg/dL C-Reactive Protein 24.6 H (0.2-0.8) mg/dL Alex Results Last 24 Hours: Microbiology 07/15/20 12:16 Aerobic Blood Culture - Preliminary Blood NO GROWTH AFTER 2 DAYS Anaerobic Blood Culture - Preliminary NO GROWTH AFTER 2 DAYS 07/15/20 12:16 Aerobic Blood Culture - Preliminary Blood NO GROWTH AFTER 2 DAYS Anaerobic Blood Culture - Preliminary NO GROWTH AFTER 2 DAYS Med Orders - Current: Current Medications Acetaminophen (Tylenol) 650 mg PO Q4H PRN PRN Reason: Fever Last Admin: 07/17/20 16:42 Dose: 650 mg Documented by: Albuterol (Ventolin Hfa) 0 gm INH QID PRN PRN Reason: Dyspnea Atenolol (Tenormin) 50 mg PO BID [facility] Last Admin: 07/18/20 08:20 Dose: 50 mg Documented by: Calcium Carbonate/Glycine (Tums) 0 mg PO QID PRN PRN Reason: HYPOCALCEMIA Dexamethasone (Dexamethasone) 6 mg PO DAILY@1600 [facility] Last Admin: 07/17/20 16:25 Dose: 6 mg Documented by: Enoxaparin Sodium (Lovenox) 40 mg SUBCUT BID [facility] Last Admin: 07/18/20 07:40 Dose: 40 mg Documented by: Furosemide (Lasix) 40 mg PO QAM [facility] Last Admin: 07/18/20 07:40 Dose: 40 mg Documented by: Phenytoin Chew 50mg (Ptom) 0 each PO BEDTIME [facility] Last Admin: 07/17/20 19:48 Dose: 1 each Documented by: Phenytoin Sodium (Phenytoin) 0 mg PO BID [facility] Last Admin: 07/18/20 07:39 Dose: 200 mg Documented by: Discontinued Medications Acetaminophen (Tylenol) 650 mg PO NOW ONE Stop: 07/15/20 12:13 Last Admin: 07/15/20 12:15 Dose: 650 mg Documented by: Albuterol (Ventolin Hfa) 0 gm INH Q4H PRN PRN Reason: Dyspnea Dexamethasone (Dexamethasone) 6 mg IVPUSH DAILY [facility] Last Admin: 07/15/20 16:28 Dose: Not Given Documented by: Dexamethasone (Dexamethasone) 6 mg IVPUSH DAILY@1600 [facility] Last Admin: 07/15/20 16:29 Dose: 6 mg Documented by: Dexamethasone (Dexamethasone) 6 mg PO DAILY@1600 ENRIQUE Enoxaparin Sodium (Lovenox) 40 mg SUBCUT Q24H [facility] Last Admin: 07/16/20 15:52 Dose: 40 mg Documented by: Sodium Chloride (Normal Saline) 1,000 mls @ 125 mls/hr IV ASDIRECTED [facility] Stop: 07/17/20 00:14 Last Admin: 07/15/20 15:00 Dose: 125 mls/hr Documented by: Sodium Chloride (Normal Saline) 250 mls @ 250 mls/hr IV Q4H [facility] Stop: 07/18/20 09:29 Last Admin: 07/17/20 12:33 Dose: Not Given Documented by: Sodium Chloride (Normal Saline) 250 mls @ 250 mls/hr IV Q4H [facility] Stop: 07/18/20 09:44 Last Admin: 07/18/20 08:21 Dose: 250 mls/hr Documented by: Iopamidol (Isovue-370 (76%)) 100 ml IVPUSH ONETIME ONE Stop: 07/15/20 16:06 Last Admin: 07/15/20 16:11 Dose: 100 ml Documented by: - Exam Quality Assessment: Supplemental Oxygen General: Lethargic HEENT: Other (mucous membranes are dry) Neck: Supple Lungs: Decreased Breath Sounds, Rhonchi Cardiovascular: Regular Rate, Regular Rhythm GI/Abdominal Exam: Normal Bowel Sounds, Soft, Non-Tender Extremities: Normal Inspection, Pedal Edema (trace) Skin: Warm, Dry Neurological: No New Focal Deficit Sepsis Event Note - Evaluation Sepsis Screening Result: No Definite Risk - Focused Exam Vital Signs: Vital Signs Temp Pulse Pulse Resp BP BP Pulse Ox 07/18/20 08:27 93 L 07/18/20 08:20 82 150/80 H 07/18/20 08:00 98.7 F 82 20 150/80 H 85 L 07/18/20 03:28 98.7 F 83 22 H 155/79 H 95 07/18/20 00:00 98.9 F 75 22 H 90/64 95 - Problem List & Annotations (1) COVID-19 SNOMED Code(s): 513143628 Code(s): U07.1 - COVID-19 Status: Acute Priority: High Current Visit: Y es (2) Hyponatremia SNOMED Code(s): 16589130 Code(s): E87.1 - HYPO-OSMOLALITY AND HYPONATREMIA Status: Acute Priority: High Current Visit: Yes (3) Palliative care patient SNOMED Code(s): 359625969, 286623483 Code(s): Z51.5 - ENCOUNTER FOR PALLIATIVE CARE Status: Acute Priority: High Current Visit: Yes (4) Pneumonia SNOMED Code(s): 697984446 Code(s): J18.9 - PNEUMONIA, UNSPECIFIED ORGANISM Status: Acute Priority: High Current Visit: Yes Qualifiers: Laterality: bilateral Annotation/Comment:: viral pneumonitis related to covid (5) Weakness SNOMED Code(s): 89103077 Code(s): R53.1 - WEAKNESS Status: Acute Priority: High Current Visit: Yes - Problem List Review Problem List Initiated/Reviewed/Updated: Yes - My Orders Last 24 Hours: My Active Orders 07/19/20 05:11 BASIC METABOLIC PANEL,BMP [CHEM] AM C-REACTIVE PROTEIN [CHEM] AM CBC WITH AUTO DIFF [HEME] AM PRO B-TYPE NATRIUR PEPT,BNPPRO [CHEM] Routine - Assessment Assessment:: Viral pneumonitis Weakness Hyponatremia Covid-19 Palliative care patient - Plan Plan:: 07/16/20 0815am This patient was admitted yesterday with COVID. He was admitted due to living at home alone and fell x2 in the last 24 hours without injury. The patient was tested on 07/11 for COVID. The patient was admitted. The patient continues today to have general weakness. Patient is not able to get up from the chair without a nurse assist. He is able to put weight on both feet and assist himself to the bedside toilet. However, the patient requires a lot of assistance form the nurse and also holds onto every item along the way to help support himself. There is no way at this time this patient could safely return to the his home due to fall risk. The patient reports that he does not feel that short of breath. He reports that he just feels weak. He does report loss of taste and a couple episodes of loose stool with urinating. The patient is alert and oriented. The patient labs yesterday were 4.3, platelets 99, sodium 128, chloride 94, lactic 1.6, ca 8.1, CRP 20.4. His temperature was 100.0, Oxygen saturation this morning was 97% on 2 L NC, and transitioned to Room Air at 800am at 93%. At this time, will continue Room Air to see if maintains his oxygen saturation. He is not distressed and no complaints of shortness of breath. Respiratory rate of 22. I discontinued fluids after 1 L NS due to heart failure history and edema. I will change his dexamethasone to PO, as his oral intake has been good. I believe this patient will remain acute status, admit at least until Saturday. Saturday, could evaluate for alf plan for this patient with PT/OT to evaluate. I have also reviewed his CXR which shows Viral infiltrates consistent with COVID. No abx tx at this time. Discussed with patient the plan and he is acceptable to this. Also, due to patient cochlear implant and difficulty with hearing, all conversation I did, was on a white wash board and patient responded verbally. We do not have remdesivir to give the patient. 07/17/20 1205pm The patient today is more drowsy than yesterday. He does open eyes when I talk to him and does answer my questions appropriately when I use the dry erase board. Once I ask one question, he goes back to sleep, then arouse and he awakes easily. The patient is oriented x3. She is able to currently make his own medical decisions. The patient sodium today continues to be low at 127 and chloride 91. The patient appetite has not been good, he is not eating much and not drinking many fluids. He reports that he has no taste and does not feel like eating. I have changed his Lovenox to 40mg BID due to elevated d-dimer with COVID. I spoke to the patent about transfer, but he is very adament that wants to stay in [place]. He also continues to report he does not want machines to keep him alive. I called and spoke to hospitalist at [facility] about patient. He reports patient with COVID and hypovalemia to give NS 250ml bolus every 4 hours for a 24 hour period. He also reports this patient may go into fluid overload and hypoxia will become the next problem due to COVID. I called and spoke to Lani the daughter LUIS about this patient and his care. She understands risk with fluid replacement and patient condition and his refusal to transfer. We also discussed other tx of antiviral and plasma, that we do not have here. Lani is aware of all risk vs benefits. Will do the fluids and continue admit. Will recheck labs in the morning. Patient is aware and agrees with treatment plan. IT IS A POSSIBILITY THIS PATIENT COULD DURING THIS ADMIT. PALLIATIVE CARE. PATIENT HAS COMORBIDITIES SUCH HEART FAILURE AND HTN, NOW COMPLICATED WITH COVID. 07-18-2020 Patient very drowsy today, opens eyes with stimulation but falls back asleep before even reading the whole message on the [employer] board. He states "is feeling fine". Does admit to nursing staff that he feels short of breath at times. Oxygen sats did decrease during the night down to 85% so oxygen was increased to 4 liters. He is oriented. Not eating or drinking much of anything. Jorge L Lewis had contacted hospitalist in [place] and recommended fluid bolus of 250 ml every 4 hours for 24 hours, which has been completed. CT scan did indicate viral pneumonitis but at this point, recommended supportive care as is on day 10 at this point of COVID and antiviral and plasma are out of the range. Family and patient have been against transfer at this point, is aware that could further decline and possibly from this. He and his daughter understand this risk. Labs today are stable, sodium still low. Will continue with dexamethasone and oxygen. Lovenox BID. Repeat labs in am. Supportive care.
[2020-07-18] MEDS: Acetaminophen 325 MG Tab PO PRN (12:17)
[2020-07-18] MEDS: Dexamethasone 4 MG Tab PO SCH (16:08)
[2020-07-18] MEDS: PHENYTOIN 50 MG PO SCH (19:34)
[2020-07-19] MEDS: Atenolol 50 MG Tab PO SCH ×2 (08:04→20:10)
[2020-07-19] MEDS: Enoxaparin 40 MG/0.4 ML Syringe SUBCUT SCH ×2 (08:05→20:09)
[2020-07-19] MEDS: Phenytoin 100 MG Cap.ER PO SCH ×2 (08:05→20:10)
[2020-07-19] MEDS: Furosemide 40 MG Tab PO SCH (08:05)
[2020-07-19] MEDS: Acetaminophen 325 MG Tab PO PRN ×3 (08:06→20:11)
[2020-07-19 08:47] LABS: CHLORIDE,CL 90 mEq/L (98-106); SODIUM,NA 126 mEq/L (136-145)
--- NOTE | 2020-07-19 10:23 | PCM.PN ---
- General Info Date of Service: 07/19/20 Admission Dx/Problem (Free Text): Viral Pneumonia Weakness COVID 19 Functional Status: Reports: Pain Controlled, Ambulating, Urinating. Denies: Tolerating Diet - Review of Systems General: Reports: Weakness, Fatigue, Malaise. Denies: Fever HEENT: Denies: Headaches, Sinus Congestion, Sore Throat Pulmonary: Reports: Cough. Denies: Shortness of Breath Cardiovascular: Denies: Chest Pain, Lightheadedness Gastrointestinal: Reports: Diarrhea. Denies: Abdominal Pain, Nausea, Vomiting Genitourinary: Reports: No Symptoms Musculoskeletal: Reports: No Symptoms Skin: Reports: No Symptoms Neurological: Reports: Weakness - Patient Data Vitals - Most Recent: Last Vital Signs Temp 99.7 F 07/19/20 08:00 Pulse 85 07/19/20 08:04 Resp 24 H 07/19/20 08:00 BP 145/73 H 07/19/20 08:04 Pulse Ox 93 L 07/19/20 08:00 Weight - Most Recent: 233 lb 8 oz Lab Results Last 24 Hours: Laboratory Results - last 24 hr 07/17/20 07/19/20 07/19/20 Range/Units 11:39 05:11 08:10 WBC 4.9 L (5.0-10.0) 10^3/uL RBC 4.32 L (4.50-6.00) 10^6/uL Hgb 14.0 (14.0-18.0) g/dL Hct 39.6 L (40.0-54.0) % MCV 91.7 (82.0-94.0) fL MCH 32.4 H (27.0-32.0) pg MCHC 35.4 (33.0-38.0) g/dL RDW Coeff of Shelia 12.7 (11.0-15.0) % Plt Count 143 L (150-400) 10^3/uL Neut % (Auto) 88.2 H (35-85) % Lymph % (Auto) 7.3 L (10-55) % [place] % (Auto) 4.3 (0-16) % Eos % (Auto) 0 (0-5) % Baso % (Auto) 0.2 (0-3) % Neut # (Auto) 4.33 (1.80-7.00) 10^3/uL Lymph # (Auto) 0.36 L (1.00-4.80) 10^3/uL [place] # (Auto) 0.21 (0.00-0.80) 10^3/uL Eos # (Auto) 0.00 (0.00-0.45) 10^3/uL Baso # (Auto) 0.01 10^3/uL Sodium 126 L (136-145) mEq/L Potassium 3.7 (3.5-5.0) mEq/L Chloride 90 L (98-106) mEq/L Carbon Dioxide 28 (21-32) mmol/L BUN 15 (7-18) mg/dL Creatinine 0.9 (0.7-1.3) mg/dL Est Cr Clr Drug Dosing 63.47 mL/min Estimated GFR (MDRD) > 60 (>=60) mL/min Glucose 164 H (75-99) mg/dL Calcium 7.8 L (8.4-10.1) mg/dL C-Reactive Protein 29.8 H (0.2-0.8) mg/dL NT-Pro-B Natriuret Pep 2940 H (0-1000) pg/mL Urine Osmolality 620 (300-900) mosm/kg Alex Results Last 24 Hours: Microbiology 07/19/20 08:45 C. difficile DNA Amplification - Final Stool / Feces Positive C. Diff Dna 07/15/20 12:16 Aerobic Blood Culture - Preliminary Blood NO GROWTH AFTER 3 DAYS Anaerobic Blood Culture - Preliminary NO GROWTH AFTER 3 DAYS 07/15/20 12:16 Aerobic Blood Culture - Preliminary Blood NO GROWTH AFTER 3 DAYS Anaerobic Blood Culture - Preliminary NO GROWTH AFTER 3 DAYS Med Orders - Current: Current Medications Acetaminophen (Tylenol) 650 mg PO Q4H PRN PRN Reason: Fever Last Admin: 07/19/20 08:06 Dose: 650 mg Documented by: Albuterol (Ventolin Hfa) 0 gm INH QID PRN PRN Reason: Dyspnea Atenolol (Tenormin) 50 mg PO BID [facility] Last Admin: 07/19/20 08:04 Dose: 50 mg Documented by: Calcium Carbonate/Glycine (Tums) 0 mg PO QID PRN PRN Reason: HYPOCALCEMIA Dexamethasone (Dexamethasone) 6 mg PO DAILY@1600 [facility] Last Admin: 07/18/20 16:08 Dose: 6 mg Documented by: Enoxaparin Sodium (Lovenox) 40 mg SUBCUT BID [facility] Last Admin: 07/19/20 08:05 Dose: 40 mg Documented by: Furosemide (Lasix) 40 mg PO QAM [facility] Last Admin: 07/19/20 08:05 Dose: 40 mg Documented by: Phenytoin Chew 50mg (Ptom) 0 each PO BEDTIME [facility] Last Admin: 07/18/20 19:34 Dose: 1 each Documented by: Phenytoin Sodium (Phenytoin) 0 mg PO BID [facility] Last Admin: 07/19/20 08:05 Dose: 200 mg Documented by: Discontinued Medications Acetaminophen (Tylenol) 650 mg PO NOW ONE Stop: 07/15/20 12:13 Last Admin: 07/15/20 12:15 Dose: 650 mg Documented by: Albuterol (Ventolin Hfa) 0 gm INH Q4H PRN PRN Reason: Dyspnea Dexamethasone (Dexamethasone) 6 mg IVPUSH DAILY [facility] Last Admin: 07/15/20 16:28 Dose: Not Given Documented by: Dexamethasone (Dexamethasone) 6 mg IVPUSH DAILY@1600 [facility] Last Admin: 07/15/20 16:29 Dose: 6 mg Documented by: Dexamethasone (Dexamethasone) 6 mg PO DAILY@1600 ERNIQUE Enoxaparin Sodium (Lovenox) 40 mg SUBCUT Q24H [facility] Last Admin: 07/16/20 15:52 Dose: 40 mg Documented by: Sodium Chloride (Normal Saline) 1,000 mls @ 125 mls/hr IV ASDIRECTED [facility] Stop: 07/17/20 00:14 Last Admin: 07/15/20 15:00 Dose: 125 mls/hr Documented by: Sodium Chloride (Normal Saline) 250 mls @ 250 mls/hr IV Q4H [facility] Stop: 07/18/20 09:29 Last Admin: 07/17/20 12:33 Dose: Not Given Documented by: Sodium Chloride (Normal Saline) 250 mls @ 250 mls/hr IV Q4H [facility] Stop: 07/18/20 09:44 Last Admin: 07/18/20 08:21 Dose: 250 mls/hr Documented by: Iopamidol (Isovue-370 (76%)) 100 ml IVPUSH ONETIME ONE Stop: 07/15/20 16:06 Last Admin: 07/15/20 16:11 Dose: 100 ml Documented by: - Exam Quality Assessment: Supplemental Oxygen General: Other (drowsy but able to arouse much easier today) HEENT: Other (mucous membranes dry) Neck: Supple Lungs: Decreased Breath Sounds, Rhonchi Cardiovascular: Regular Rate, Regular Rhythm GI/Abdominal Exam: Normal Bowel Sounds, Soft, Non-Tender Extremities: Normal Inspection, Pedal Edema (trace) Skin: Warm, Dry Neurological: No New Focal Deficit Sepsis Event Note - Evaluation Sepsis Screening Result: No Definite Risk - Focused Exam Vital Signs: Vital Signs Temp Pulse Pulse Resp BP BP Pulse Ox 07/19/20 08:04 85 145/73 H 07/19/20 08:00 99.7 F 85 24 H 145/73 H 93 L 07/19/20 04:00 98.6 F 24 H 140/72 96 07/19/20 00:00 97.6 F 24 H 141/75 H 94 L - Problem List & Annotations (1) COVID-19 SNOMED Code(s): 821041891 Code(s): U07.1 - COVID-19 Status: Acute Priority: High Current Visit: Yes (2) Hyponatremia SNOMED Code(s): 80871646 Code(s): E87.1 - HYPO-OSMOLALITY AND HYPONATREMIA Status: Acute Priority: High Current Visit: Yes (3) Palliative care patient SNOMED Code(s): 575009747, 698459250 Code(s): Z51.5 - ENCOUNTER FOR PALLIATIVE CARE Status: Acute Priority: High Current Visit: Yes (4) Pneumonia SNOMED Code(s): 983968639 Code(s): J18.9 - PNEUMONIA, UNSPECIFIED ORGANISM Status: Acute Priority: High Current Visit: Yes Qualifiers: Laterality: bilateral Annotation/Comment:: viral pneumonitis related to covid (5) Weakness SNOMED Code(s): 33902100 Code(s): R53.1 - WEAKNESS Status: Acute Priority: High Current Visit: Yes - Problem List Review Problem List Initiated/Reviewed/Updated: Yes - My Orders Last 24 Hours: My Active Orders 07/19/20 08:26 Isolation [COMM] Stat 07/19/20 08:45 STOOL CULTURE [MREF] Routine WBC, STOOL [OP] Routine - Assessment Assessment:: Viral pneumonitis Weakness Hyponatremia Covid-19 Palliative care patient - Plan Plan:: 07/16/20 0815am This patient was admitted yesterday with COVID. He was admitted due to living at home alone and fell x2 in the last 24 hours without injury. The patient was tested on 07/11 for COVID. The patient was admitted. The patient continues today to have general weakness. Patient is not able to get up from the chair without a nurse assist. He is able to put weight on both feet and assist himself to the bedside toilet. However, the patient requires a lot of assistance form the nurse and also holds onto every item along the way to help support himself. There is no way at this time this patient could safely return to the his home due to fall risk. The patient reports that he does not feel that short of breath. He reports that he just feels weak. He does report loss of taste and a couple episodes of loose stool with urinating. The patient is alert and oriented. The patient labs yesterday were 4.3, platelets 99, sodium 128, chloride 94, lactic 1.6, ca 8.1, CRP 20.4. His temperature was 100.0, Oxygen saturation this morning was 97% on 2 L NC, and transitioned to Room Air at 800am at 93%. At this time, will continue Room Air to see if maintains his oxygen saturation. He is not distressed and no complaints of shortness of breath. Respiratory rate of 22. I discontinued fluids after 1 L NS due to heart failure history and edema. I will change his dexamethasone to PO, as his oral intake has been good. I believe this patient will remain acute status, admit at least until Saturday. Saturday, could evaluate for fdc plan for this patient with PT/OT to evaluate. I have also reviewed his CXR which shows Viral infiltrates consistent with COVID. No abx tx at this time. Discussed with patient the plan and he is acceptable to this. Also, due to patient cochlear implant and difficulty with hearing, all conversation I did, was on a white wash board and patient responded verbally. We do not have remdesivir to give the patient. 07/17/20 1205pm The patient today is more drowsy than yesterday. He does open eyes when I talk to him and does answer my questions appropriately when I use the dry erase board. Once I ask one question, he goes back to sleep, then arouse and he awakes easily. The patient is oriented x3. She is able to currently make his own medical decisions. The patient sodium today continues to be low at 127 and chloride 91. The patient appetite has not been good, he is not eating much and not drinking many fluids. He reports that he has no taste and does not feel like eating. I have changed his Lovenox to 40mg BID due to elevated d-dimer with COVID. I spoke to the patent about transfer, but he is very adament that wants to stay in [place]. He also continues to report he does not want machines to keep him alive. I called and spoke to hospitalist at [facility] about patient. He reports patient with COVID and hypovalemia to give NS 250ml bolus every 4 hours for a 24 hour period. He also reports this patient may go into fluid overload and hypoxia will become the next problem due to COVID. I called and spoke to Lani the daughter LUIS about this patient and his care. She understands risk with fluid replacement and patient condition and his refusal to transfer. We also discussed other tx of antiviral and plasma, that we do not have here. Lani is aware of all risk vs benefits. Will do the fluids and continue admit. Will recheck labs in the morning. Patient is aware and agrees with treatment plan. IT IS A POSSIBILITY THIS PATIENT COULD DURING THIS ADMIT. PALLIATIVE CARE. PATIENT HAS COMORBIDITIES SUCH HEART FAILURE AND HTN, NOW COMPLICATED WITH COVID. 07-18-2020 Patient very drowsy today, opens eyes with stimulation but falls back asleep before even reading the whole message on the [employer] board. He states "is feeling fine". Does admit to nursing staff that he feels short of breath at times. Oxygen sats did decrease during the night down to 85% so oxygen was increased to 4 liters. He is oriented. Not eating or drinking much of anything. Jorge L Lewis had contacted hospitalist in [place] and recommended fluid bolus of 250 ml every 4 hours for 24 hours, which has been completed. CT scan did indicate viral pneumonitis but at this point, recommended supportive care as is on day 10 at this point of COVID and antiviral and plasma are out of the range. Family and patient have been against transfer at this point, is awar e that could further decline and possibly from this. He and his daughter understand this risk. Labs today are stable, sodium still low. Will continue with dexamethasone and oxygen. Lovenox BID. Repeat labs in am. Supportive care. 07-19-2020 Patient more alert today, able to answer questions somewhat easier today. Denies feeling short of breath. No chest discomfort. Does continue to have occasional cough. Is having frequent loose watery stools, collected stool samples this am. Still requiring 4 liters of oxygen, sats 93% this am. Minimal oral intake yet at this point. Lung sounds have rhonchi throughout. Trace of edema. No abdominal tenderness with exam. Sodium still low at 126 despite IV fluids and reduced oral intake of fluids. CRP increased to 29. ProBNP 2940. Will start normal saline IV. Start Flagyl IV as c diff is positive. Supportive care. Repeat labs in am.
[2020-07-19] MEDS ORDERED: metroNIDAZOLE/Normal Saline 500 MG in Premix Bag 1 BAG IV SCH (11:00)
[2020-07-19] MEDS: Calcium Carbonate 500 MG Tab.Chew PO PRN ×2 (12:00→23:43)
[2020-07-19] MEDS: Sodium Chloride 0.9% 1,000 ML IV SCH (12:51)
[2020-07-19] MEDS: Dexamethasone 4 MG Tab PO SCH (15:04)
[2020-07-19] MEDS: Albuterol 8 GM Inhaler INH PRN (15:05)
[2020-07-19] MEDS: metroNIDAZOLE/Normal Saline 500 MG in Premix Bag 1 BAG IV SCH (20:08)
[2020-07-19] MEDS: PHENYTOIN 50 MG PO SCH (20:10)
[2020-07-20] MEDS: metroNIDAZOLE/Normal Saline 500 MG in Premix Bag 1 BAG IV SCH ×3 (04:24→19:54)
[2020-07-20] MEDS: Acetaminophen 325 MG Tab PO PRN ×3 (04:25→16:25)
[2020-07-20] MEDS: Phenytoin 100 MG Cap.ER PO SCH ×2 (07:56→19:56)
[2020-07-20] MEDS: Atenolol 50 MG Tab PO SCH ×2 (07:56→19:56)
[2020-07-20] MEDS: Enoxaparin 40 MG/0.4 ML Syringe SUBCUT SCH ×2 (07:57→19:55)
[2020-07-20] MEDS: Albuterol 8 GM Inhaler INH PRN ×2 (07:57→11:57)
[2020-07-20] MEDS: Furosemide 40 MG Tab PO SCH (07:57)
[2020-07-20 08:03] LABS: CHLORIDE,CL 89 mEq/L (98-106); SODIUM,NA 126 mEq/L (136-145)
[2020-07-20 09:42] LABS: O2 DELIVERY DEVICE NON REBR MASK
[2020-07-20 09:45] LABS: BICARBONATE,ARTERIAL 20.9 mm/L (22.0-26.0); O2 SATURATION ARTERIAL 83 % (95-98); PCO2 ARTERIAL 29 mm/Hg0 (35-45); PO2 ARTERIAL 43 mm/Hg (80-100)
[2020-07-20] MEDS ORDERED: Morphine 2 MG/ML SYRINGE IVPUSH PRN ×2 (11:39→11:51)
--- NOTE | 2020-07-20 15:22 | PCM.PN ---
- General Info Date of Service: 07/20/20 Admission Dx/Problem (Free Text): Viral Pneumonia Weakness COVID 19 Functional Status: Reports: Pain Controlled. Denies: Tolerating Diet, Ambulating - Review of Systems General: Reports: Fever, Weakness, Fatigue, Malaise, Chills HEENT: Reports: No Symptoms Pulmonary: Reports: Shortness of Breath, Cough, Wheezing Cardiovascular: Denies: Chest Pain, Lightheadedness Gastrointestinal: Reports: Diarrhea. Denies: Abdominal Pain, Nausea, Vomiting Genitourinary: Reports: No Symptoms Musculoskeletal: Reports: No Symptoms Neurological: Reports: Weakness - Patient Data Vitals - Most Recent: Last Vital Signs Temp 99.6 F 07/20/20 12:00 Pulse 94 07/20/20 12:00 Resp 34 H 07/20/20 12:00 BP 146/69 H 07/20/20 12:00 Pulse Ox 86 L 07/20/20 12:00 Weight - Most Recent: 233 lb 8 oz I&O - Last 24 Hours: Intake & Output 07/20/20 07/20/20 07/20/20 06:59 14:59 22:59 Intake Total 100 Balance 100 Lab Results Last 24 Hours: Laboratory Results - last 24 hr 07/20/20 07/20/20 07/20/20 Range/Units 07:45 07:45 09:35 WBC 5.6 (5.0-10.0) 10^3/uL RBC 4.28 L (4.50-6.00) 10^6/uL Hgb 14.1 (14.0-18.0) g/dL Hct 38.9 L (40.0-54.0) % MCV 90.9 (82.0-94.0) fL MCH 32.9 H (27.0-32.0) pg MCHC 36.2 (33.0-38.0) g/dL RDW Coeff of Shelia 12.8 (11.0-15.0) % Plt Count 136 L (150-400) 10^3/uL Neut % (Auto) 91.5 H (35-85) % Lymph % (Auto) 6.3 L (10-55) % Ransom % (Auto) 2.2 (0-16) % Eos % (Auto) 0 (0-5) % Baso % (Auto) 0 (0-3) % Neut # (Auto) 5.10 (1.80-7.00) 10^3/uL Lymph # (Auto) 0.35 L (1.00-4.80) 10^3/uL Ransom # (Auto) 0.12 (0.00-0.80) 10^3/uL Eos # (Auto) 0.00 (0.00-0.45) 10^3/uL Baso # (Auto) 0.00 10^3/uL ABG pH 7.47 H (7.35-7.45) ABG pCO2 29 L (35-45) mm/Hg0 ABG pO2 43 L (80-100) mm/Hg ABG HCO3 20.9 L (22.0-26.0) mm/L ABG O2 Saturation 83 L (95-98) % ABG Base Excess -3.0 L (-2.0-3.0) O2 Delivery Device Non rebr mask Sodium 126 L (136-145) mEq/L Potassium 3.7 (3.5-5.0) mEq/L Chloride 89 L (98-106) mEq/L Carbon Dioxide 29 (21-32) mmol/L BUN 14 (7-18) mg/dL Creatinine 0.9 (0.7-1.3) mg/dL Est Cr Clr Drug Dosing 63.47 mL/min Estimated GFR (MDRD) > 60 (>=60) mL/min Glucose 159 H (75-99) mg/dL Calcium 8.1 L (8.4-10.1) mg/dL C-Reactive Protein 34.3 H (0.2-0.8) mg/dL Alex Results Last 24 Hours: Microbiology 07/19/20 08:45 Stool Aerobic Culture - Preliminary Stool / Feces 07/15/20 12:16 Aerobic Blood Culture - Final Blood NO GROWTH AFTER 5 DAYS Anaerobic Blood Culture - Final NO GROWTH AFTER 5 DAYS 07/15/20 12:16 Aerobic Blood Culture - Final Blood NO GROWTH AFTER 5 DAYS Anaerobic Blood Culture - Final NO GROWTH AFTER 5 DAYS 07/19/20 10:56 Clostridioides difficile (PCR) - Final Stool / Feces 07/19/20 08:45 Stool for WBCs - Final Stool / Feces NO WBC SEEN REFERENCE RANGE: NO WBC SEEN Med Orders - Current: Current Medications Acetaminophen (Tylenol) 650 mg PO Q4H PRN PRN Reason: Fever Last Admin: 07/20/20 10:15 Dose: 650 mg Documented by: Albuterol (Ventolin Hfa) 0 gm INH QID PRN PRN Reason: Dyspnea Last Admin: 07/20/20 11:57 Dose: 2 puff Documented by: Atenolol (Tenormin) 50 mg PO BID [facility] Last Admin: 07/20/20 07:56 Dose: 50 mg Documented by: Calcium Carbonate/Glycine (Tums) 0 mg PO QID PRN PRN Reason: HYPOCALCEMIA Last Admin: 07/19/20 23:43 Dose: 1,000 mg Documented by: Dexamethasone (Dexamethasone) 6 mg PO DAILY@1600 [facility] Last Admin: 07/19/20 15:04 Dose: 6 mg Documented by: Enoxaparin Sodium (Lovenox) 40 mg SUBCUT BID [facility] Last Admin: 07/20/20 07:57 Dose: 40 mg Documented by: Furosemide (Lasix) 40 mg PO QAM [facility] Last Admin: 07/20/20 07:57 Dose: 40 mg Documented by: Sodium Chloride (Normal Saline) 1,000 mls @ 50 mls/hr IV ASDIRECTED [facility] Last Admin: 07/19/20 12:51 Dose: 50 mls/hr Documented by: Metronidazole 500 mg/ Premix 100 mls @ 100 mls/hr IV TID@0400,1200,2000 [facility] Last Admin: 07/20/20 11:55 Dose: 100 mls/hr Documented by: Morphine Sulfate (Morphine) 2 mg IVPUSH Q2H PRN PRN Reason: Shortness of Breath Last Admin: 07/20/20 11:57 Dose: 2 mg Documented by: Morphine Sulfate (Morphine) 4 mg IVPUSH Q2H PRN PRN Reason: Shortness of Breath Phenytoin Chew 50mg (Ptom) 0 each PO BEDTIME [facility] Last Admin: 07/19/20 20:10 Dose: 1 each Documented by: Phenytoin Sodium (Phenytoin) 0 mg PO BID [facility] Last Admin: 07/20/20 07:56 Dose: 200 mg Documented by: Discontinued Medications Acetaminophen (Tylenol) 650 mg PO NOW ONE Stop: 07/15/20 12:13 Last Admin: 07/15/20 12:15 Dose: 650 mg Documented by: Albuterol (Ventolin Hfa) 0 gm INH Q4H PRN PRN Reason: Dyspnea Dexamethasone (Dexamethasone) 6 mg IVPUSH DAILY [facility] Last Admin: 07/15/20 16:28 Dose: Not Given Documented by: Dexamethasone (Dexamethasone) 6 mg IVPUSH DAILY@1600 ENRIQUE Last Admin: 07/15/20 16:29 Dose: 6 mg Documented by: Dexamethasone (Dexamethasone) 6 mg PO DAILY@1600 ENRIQUE Enoxaparin Sodium (Lovenox) 40 mg SUBCUT Q24H [facility] Last Admin: 07/16/20 15:52 Dose: 40 mg Documented by: Sodium Chloride (Normal Saline) 1,000 mls @ 125 mls/hr IV ASDIRECTED [facility] Stop: 07/17/20 00:14 Last Admin: 07/15/20 15:00 Dose: 125 mls/hr Documented by: Sodium Chloride (Normal Saline) 250 mls @ 250 mls/hr IV Q4H [facility] Stop: 07/18/20 09:29 Last Admin: 07/17/20 12:33 Dose: Not Given Documented by: Sodium Chloride (Normal Saline) 250 mls @ 250 mls/hr IV Q4H [facility] Stop: 07/18/20 09:44 Last Admin: 07/18/20 08:21 Dose: 250 mls/hr Documented by: Metronidazole 500 mg/ Premix 100 mls @ 100 mls/hr IV Q8H [facility] Last Admin: 07/19/20 12:01 Dose: 100 mls/hr Documented by: Iopamidol (Isovue-370 (76%)) 100 ml IVPUSH ONETIME ONE Stop: 07/15/20 16:06 Last Admin: 07/15/20 16:11 Dose: 100 ml Documented by: Morphine Sulfate (Morphine) 4 mg IVPUSH Q2H PRN PRN Reason: Shortness of Breath - Exam Quality Assessment: Supplemental Oxygen General: Lethargic HEENT: Other (mucous membranes dry) Neck: Supple Lungs: Decreased Breath Sounds, Rhonchi, Wheezing Cardiovascular: Regular Rate, Regular Rhythm GI/Abdominal Exam: Normal Bowel Sounds, Soft, Non-Tender Extremities: Pedal Edema, Other (mottling noted to lower extremity. legs are cool) Skin: Cool Neurological: No New Focal Deficit Sepsis Event Note - Evaluation Sepsis Screening Result: No Definite Risk - Focused Exam Vital Signs: Vital Signs Temp Pulse Pulse Resp BP BP Pulse Ox 07/20/20 12:00 99.6 F 94 34 H 146/69 H 86 L 07/20/20 11:00 101.1 F H 07/20/20 07:57 98.0 F 81 28 H 141/74 H 89 L 07/20/20 07:56 81 141/74 H 07/20/20 04:00 97.0 F 75 28 H 129/60 90 L - Problem List & Annotations (1) COVID-19 SNOMED Code(s): 330136889 Code(s): U07.1 - COVID-19 Status: Acute Priority: High Current Visit: Yes (2) Hyponatremia SNOMED Code(s): 29625648 Code(s): E87.1 - HYPO-OSMOLALITY AND HYPONATREMIA Status: Acute Priority: High Current Visit: Yes (3) Palliative care patient SNOMED Code(s): 782267503, 187603411 Code(s): Z51.5 - ENCOUNTER FOR PALLIATIVE CARE Status: Acute Priority: High Current Visit: Yes (4) Pneumonia SNOMED Code(s): 501222267 Code(s): J18.9 - PNEUMONIA, UNSPECIFIED ORGANISM Status: Acute Priority: High Current Visit: Yes Qualifiers: Laterality: bilateral Annotation/Comment:: viral pneumonitis related to covid (5) Weakness SNOMED Code(s): 57565038 Code(s): R53.1 - WEAKNESS Status: Acute Priority: High Current Visit: Yes - Problem List Review Problem List Initiated/Reviewed/Updated: Yes - My Orders Last 24 Hours: My Active Orders 07/19/20 20:00 metroNIDAZOLE/Normal Saline [Flagyl 500 MG in NS 100 ML] 500 mg Premix Bag 1 bag IV TID@0400,1200,199907/20/20 11:39 Morphine 2 mg IVPUSH Q2H PRN 07/20/20 11:57 Morphine 4 mg IVPUSH Q2H PRN - Assessment Assessment:: Viral pneumonitis Weakness Hyponatremia Covid-19 Palliative care patient - Plan Plan:: 07/16/20 0815am This patient was admitted yesterday with COVID. He was admitted due to living at home alone and fell x2 in the last 24 hours without injury. The patient was tested on 07/11 for COVID. The patient was admitted. The patient continues today to have general weakness. Patient is not able to get up from the chair without a nurse assist. He is able to put weight on both feet and assist himself to the bedside toilet. However, the patient requires a lot of assistance form the nurse and also holds onto every item along the way to help support himself. There is no way at this time this patient could safely return to the his home due to fall risk. The patient reports that he does not feel that short of breath. He reports that he just feels weak. He does report loss of taste and a couple episodes of loose stool with urinating. The patient is alert and oriented. The patient labs yesterday were 4.3, platelets 99, sodium 128, chloride 94, lactic 1.6, ca 8.1, CRP 20.4. His temperature was 100.0, Oxygen saturation this morning was 97% on 2 L NC, and transitioned to Room Air at 800am at 93%. At this time, will continue Room Air to see if maintains his oxygen saturation. He is not distressed and no complaints of shortness of breath. Respiratory rate of 22. I discontinued fluids after 1 L NS due to heart failure history and edema. I will change his dexamethasone to PO, as his oral intake has been good. I believe this patient will remain acute status, admit at least until Saturday. Saturday, could evaluate for manager long term care plan for this patient with PT/OT to evaluate. I have also reviewed his CXR which shows Viral infiltrates consistent with COVID. No abx tx at this time. Discussed with patient the plan and he is acceptable to this. Also, due to patient cochlear implant and difficulty with hearing, all conversation I did, was on a white wash board and patient responded verbally. We do not have remdesivir to give the patient. 07/17/20 1205pm The patient today is more drowsy than yesterday. He does open eyes when I talk to him and does answer my questions appropriately when I use the dry erase board. Once I ask one question, he goes back to sleep, then arouse and he awakes easily. The patient is oriented x3. She is able to currently make his own medical decisions. The patient sodium today continues to be low at 127 and chloride 91. The patient appetite has not been good, he is not eating much and not drinking many fluids. He reports that he has no taste and does not feel like eating. I have changed his Lovenox to 40mg BID due to elevated d-dimer with COVID. I spoke to the patent about transfer, but he is very adament that wants to stay in [place]. He also continues to report he does not want machines to keep him alive. I called and spoke to hospitalist at [facility] about patient. He reports patient with COVID and hypovalemia to give NS 250ml bolus every 4 hours for a 24 hour period. He also reports this patient may go into fluid overload and hypoxia will become the next problem due to COVID. I called and spoke to Lani the daughter LUIS about this patient and his care. She understands risk with fluid replacement and patient condition and his refusal to transfer. We also discussed other tx of antiviral and plasma, that we do not hav e here. Lani is aware of all risk vs benefits. Will do the fluids and continue admit. Will recheck labs in the morning. Patient is aware and agrees with treatment plan. IT IS A POSSIBILITY THIS PATIENT COULD DURING THIS ADMIT. PALLIATIVE CARE. PATIENT HAS COMORBIDITIES SUCH HEART FAILURE AND HTN, NOW COMPLICATED WITH COVID. 07-18-2020 Patient very drowsy today, opens eyes with stimulation but falls back asleep before even reading the whole message on the [employer] board. He states "is feeling fine". Does admit to nursing staff that he feels short of breath at times. Oxygen sats did decrease during the night down to 85% so oxygen was increased to 4 liters. He is oriented. Not eating or drinking much of anything. Jorge L Lewis had contacted hospitalist in [place] and recommended fluid bolus of 250 ml every 4 hours for 24 hours, which has been completed. CT scan did indicate viral pneumonitis but at this point, recommended supportive care as is on day 10 at this point of COVID and antiviral and plasma are out of the range. Family and patient have been against transfer at this point, is aware that could further decline and possibly from this. He and his melisa ghter understand this risk. Labs today are stable, sodium still low. Will continue with dexamethasone and oxygen. Lovenox BID. Repeat labs in am. Supportive care. 07-19-2020 Patient more alert today, able to answer questions somewhat easier today. Denies feeling short of breath. No chest discomfort. Does continue to have occasional cough. Is having frequent loose watery stools, collected stool samples this am. Still requiring 4 liters of oxygen, sats 93% this am. Minimal oral intake yet at this point. Lung sounds have rhonchi throughout. Trace of edema. No abdominal tenderness with exam. Sodium still low at 126 despite IV fluids and reduced oral intake of fluids. CRP increased to 29. ProBNP 2940. Will start normal saline IV. Start Flagyl IV as c diff is positive. Supportive care. Repeat labs in am. 07-20-2020 1020- Patient is more restless today, pulling at oxygen mask. Has had increasing oxygen demands over the last 12 hours, now on 15 liters by NRB. Sats in the mid 80s. ABGs done, show PO2 43. Oxygen sat 83%. Labs still show sodium level of 126 but stable. CRP still increasing to 34 today. Lung sounds are more tight today, wheezing noted. Is mumbling at times, difficult to understand, more confused at times. Diarrhea stools every 4 hours yet through the night. Minimal oral intake except water. Legs are cool to the touch, slight mottling noted. Family contacted about change in status today. Daughters have been visiting outside his window. Son is arriving today and will be allowed to visit as has a history of COVID recently as well. All aware of status and possibility of related to this. Will start morphine to help with restlessness and comfort. Continue IV fluids and dexamethasone. Supportive care. Repeat labs. Inapp ropriate yet for swing bed due to severity of status.
[2020-07-20] MEDS: Morphine 4 MG/ML VIAL IVPUSH PRN ×3 (16:11→23:45)
[2020-07-20] MEDS: Dexamethasone 4 MG Tab PO SCH (16:22)
[2020-07-20] MEDS: Sodium Chloride 0.9% 1,000 ML IV SCH (16:25)
[2020-07-20] MEDS: PHENYTOIN 50 MG PO SCH (19:56)
[2020-07-21] MEDS: Acetaminophen 325 MG Tab PO PRN (02:14)
[2020-07-21] MEDS: metroNIDAZOLE/Normal Saline 500 MG in Premix Bag 1 BAG IV SCH (04:37)
[2020-07-21] MEDS: Morphine 4 MG/ML VIAL IVPUSH PRN ×2 (04:38→08:40)
[2020-07-21] MEDS: Phenytoin 100 MG Cap.ER PO SCH ×2 (07:28→09:13)
[2020-07-21] MEDS: Enoxaparin 40 MG/0.4 ML Syringe SUBCUT SCH (07:29)
[2020-07-21] MEDS: Furosemide 40 MG Tab PO SCH ×2 (07:29→09:13)
[2020-07-21 08:51] LABS: CHLORIDE,CL 92 mEq/L (98-106); SODIUM,NA 126 mEq/L (136-145)
[2020-07-21] MEDS: Atenolol 50 MG Tab PO SCH (09:11)
--- NOTE | 2020-07-21 18:39 | PCM.DCSUM1 ---
Discharge Summary - Hospital Course Free Text/Narrative:: Christopher is an 85 year old male who presented to the ED with increasing weakness. Has had frequent falls. Had fallen and was unable to get himself up and laid on the floor for over 3 hours before family had come to assist him. Had not been unable to eat or drink much. No pain or discomfort. Did not acquire any injury. No LOC. Patient positive for COVID 19. Labs show low WBC at 4.7. Sodium 128. Chest xray shows bilateral infiltrate. D-Dimer was elevated. No PE. Patient was questioned in regards to transfer and code level, adamant against transfer. Is DNR. IV fluids and dexamethasone started. Diagnosis: Stroke: No Modified Sharif Scale: No Symptoms at All Modified Yell Scale Score: 0 - Discharge Data Discharge Date: 07/21/20 Discharge Disposition: DC/Tfer W/I Hosp To Swing 61 Condition: Poor - Referral to Home Health Primary Care Physician: PCP None - Discharge Diagnosis/Problem(s) (1) COVID-19 SNOMED Code(s): 259538959 ICD Code: U07.1 - COVID-19 Status: Acute Priority: High (2) Hyponatremia SNOMED Code(s): 44835495 ICD Code: E87.1 - HYPO-OSMOLALITY AND HYPONATREMIA Status: Acute Priority: High (3) Palliative care patient SNOMED Code(s): 627879405, 781070041 ICD Code: Z51.5 - ENCOUNTER FOR PALLIATIVE CARE Status: Acute Priority: High (4) Pneumonia SNOMED Code(s): 490621951 ICD Code: J18.9 - PNEUMONIA, UNSPECIFIED ORGANISM Status: Acute Priority: High Problem Details: viral pneumonitis related to covid Qualifiers: Laterality: bilateral (5) Weakness SNOMED Code(s): 33542857 ICD Code: R53.1 - WEAKNESS Status: Acute Priority: High - Patient Summary/Data Hospital Course: Patient had done well for the first 24 hours of admission. Had actually weaned him off oxygen on Saturday. He remained weak. Not eating or drinking well, has lost his sense of taste. Jorge L Lewis had contacted hospitalist in [facility] on the weekend, recommended Normal saline 250 ml infusions every 4 hours as sodium low. Blood pressure and pulse remained stable. Oxygen sats did start dropping and oxygen was initiated at 2 liters. IV Dexamethasone was switched to oral. Over the last few days, has required more and more oxygen to keep sats greater than 90%. Lung sounds are more tight, rales and wheezing noted. Initially was able to ambulate with walker and standby nurse assist, progressed to needing the ez stand as unable to bear much weight due to weakness. Has continued to not take in much for oral intake. Patient had been questioned about transfer several times and in regards to Remdesivir and plasma but refuses transfer. Family aware of declining status. Labs have continued to show low sodium at 126 despite IV fluid replacement. Diarrhea persisted, stool studies done. Positive for c diff. Was started on Flagyl which did slow down the frequency of loose stools. Over the last 24 hours, oxygen sats have continued to drop despite increasing oxygen. Is on 15 liters by NRB, sats at 83%. ABGs done with confirmation of PO2 at 43, Oxygen sat 83%. Family contacted. Conference held with son Edgar and daughters Lani and Carolyne. Advised of declining sats, lung sounds, labs. Will transfer to swing bed status and switch to comfort cares. - Patient Instructions Activity: Bedrest - Discharge Plan Home Medications: Home Meds Furosemide 40 mg PO DAILY PRN 10/28/18 [History] Multivit-Min/FA/Lycopen/Lutein [Centrum Silver Men Tablet] 1 tab PO DAILY 10/28/18 [History] Phenytoin 50 mg PO BEDTIME 10/28/18 [History] Phenytoin Sodium Extended [Dilantin] 200 mg PO BEDTIME 10/28/18 [History] Phenytoin Sodium Extended [Dilantin] 200 mg PO WITHBREAKFAST 10/28/18 [History] Potassium 99 mg PO DAILY 10/28/18 [History] atenoloL [Atenolol] 50 mg PO BID 10/28/18 [History] Clindamycin HCl 150 mg PO QID #28 capsule 11/03/18 [Rx] Forms: ED Department Discharge Referrals: PCP,None [Primary Care Provider] - - Discharge Summary/Plan Comment DC Time >30 min.: Yes Discharge Summary/Plan Comment: Discharge time 50 minutes Conference with family 25 minutes Time with patient 10 minutes Time for orders and documentation 15 - General Info Date of Service: 07/21/20 Admission Dx/Problem (Free Text: Viral Pneumonia Weakness COVID 19 Functional Status: Reports: Pain Controlled. Denies: Tolerating Diet, Ambulating - Review of Systems General: Reports: Weakness, Fatigue, Malaise, Other (patient lethargic, opens eyes to stimulation but does not vocalize. Has not been eating or drinking ) - Patient Data Vitals - Most Recent: Last Vital Signs Temp 98.9 F 07/21/20 08:00 Pulse 82 07/20/20 23:40 Resp 34 H 07/21/20 08:00 BP 145/78 H 07/21/20 08:00 Pulse Ox 82 L 07/21/20 08:00 Weight - Most Recent: 233 lb 8 oz Lab Results - Last 24 hrs: Laboratory Results - last 24 hr 07/21/20 07/21/20 Range/Units 08:08 08:08 WBC 8.4 (5.0-10.0) 10^3/uL RBC 4.24 L (4.50-6.00) 10^6/uL Hgb 13.9 L (14.0-18.0) g/dL Hct 39.3 L (40.0-54.0) % MCV 92.7 (82.0-94.0) fL MCH 32.8 H (27.0-32.0) pg MCHC 35.4 (33.0-38.0) g/dL RDW Coeff of Shelia 12.9 (11.0-15.0) % Plt Count 185 (150-400) 10^3/uL Neut % (Auto) 91.3 H (35-85) % Lymph % (Auto) 6.3 L (10-55) % Owen % (Auto) 2.3 (0-16) % Eos % (Auto) 0 (0-5) % Baso % (Auto) 0.1 (0-3) % Neut # (Auto) 7.63 H (1.80-7.00) 10^3/uL Lymph # (Auto) 0.53 L (1.00-4.80) 10^3/uL Owen # (Auto) 0.19 (0.00-0.80) 10^3/uL Eos # (Auto) 0.00 (0.00-0.45) 10^3/uL Baso # (Auto) 0.01 10^3/uL Sodium 126 L (136-145) mEq/L Potassium 4.0 (3.5-5.0) mEq/L Chloride 92 L (98-106) mEq/L Carbon Dioxide 27 (21-32) mmol/L BUN 24 H D (7-18) mg/dL Creatinine 1.0 (0.7-1.3) mg/dL Est Cr Clr Drug Dosing 57.12 mL/min Estimated GFR (MDRD) > 60 (>=60) mL/min Glucose 153 H (75-99) mg/dL Calcium 8.0 L (8.4-10.1) mg/dL C-Reactive Protein 35.7 H (0.2-0.8) mg/dL TESSY Results - Last 24 hrs: Microbiology 07/19/20 08:45 Stool Aerobic Culture - Preliminary Stool / Feces Med Orders - Current: Current Medications Discontinued Medications Acetaminophen (Tylenol) 650 mg PO NOW ONE Stop: 07/15/20 12:13 Last Admin: 07/15/20 12:15 Dose: 650 mg Documented by: Acetaminophen (Tylenol) 650 mg PO Q4H PRN PRN Reason: Fever Last Admin: 07/21/20 02:14 Dose: 650 mg Documented by: Albuterol (Ventolin Hfa) 0 gm INH Q4H PRN PRN Reason: Dyspnea Albuterol (Ventolin Hfa) 0 gm INH QID PRN PRN Reason: Dyspnea Last Admin: 07/20/20 11:57 Dose: 2 puff Documented by: Atenolol (Tenormin) 50 mg PO BID [facility] Last Admin: 07/21/20 09:11 Dose: Not Given Documented by: Calcium Carbonate/Glycine (Tums) 0 mg PO QID PRN PRN Reason: HYPOCALCEMIA Last Admin: 07/19/20 23:43 Dose: 1,000 mg Documented by: Dexamethasone (Dexamethasone) 6 mg IVPUSH DAILY [facility] Last Admin: 07/15/20 16:28 Dose: Not Given Documented by: Dexamethasone (Dexamethasone) 6 mg IVPUSH DAILY@1600 [facility] Last Admin: 07/15/20 16:29 Dose: 6 mg Documented by: Dexamethasone (Dexamethasone) 6 mg PO DAILY@1600 ENRIQUE Dexamethasone (Dexamethasone) 6 mg PO DAILY@1600 ENRI[facility] Last Admin: 07/20/20 16:22 Dose: 6 mg Documented by: Enoxaparin Sodium (Lovenox) 40 mg SUBCUT Q24H [facility] Last Admin: 07/16/20 15:52 Dose: 40 mg Documented by: Enoxaparin Sodium (Lovenox) 40 mg SUBCUT BID [facility] Last Admin: 07/21/20 07:29 Dose: 40 mg Documented by: Furosemide (Lasix) 40 mg PO QAM [facility] Last Admin: 07/21/20 09:13 Dose: Not Given Documented by: Sodium Chloride (Normal Saline) 1,000 mls @ 125 mls/hr IV ASDIRECTED [facility] Stop: 07/17/20 00:14 Last Admin: 07/15/20 15:00 Dose: 125 mls/hr Documented by: Sodium Chloride (Normal Saline) 250 mls @ 250 mls/hr IV Q4H [facility] Stop: 07/18/20 09:29 Last Admin: 07/17/20 12:33 Dose: Not Given Documented by: Sodium Chloride (Normal Saline) 250 mls @ 250 mls/hr IV Q4H [facility] Stop: 07/18/20 09:44 Last Admin: 07/18/20 08:21 Dose: 250 mls/hr Documented by: Metronidazole 500 mg/ Premix 100 mls @ 100 mls/hr IV Q8H [facility] Last Admin: 07/19/20 12:01 Dose: 100 mls/hr Documented by: Sodium Chloride (Normal Saline) 1,000 mls @ 50 mls/hr IV ASDIRECTED [facility] Last Admin: 07/20/20 16:25 Dose: 50 mls/hr Documented by: Metronidazole 500 mg/ Premix 100 mls @ 100 mls/hr IV TID@0400,1200,2000 [facility] Last Admin: 07/21/20 04:37 Dose: 100 mls/hr Documented by: Iopamidol (Isovue-370 (76%)) 100 ml IVPUSH ONETIME ONE Stop: 07/15/20 16:06 Last Admin: 07/15/20 16:11 Dose: 100 ml Documented by: Morphine Sulfate (Morphine) 2 mg IVPUSH Q2H PRN PRN Reason: Shortness of Breath Last Admin: 07/20/20 11:57 Dose: 2 mg Documented by: Morphine Sulfate (Morphine) 4 mg IVPUSH Q2H PRN PRN Reason: Shortness of Breath Morphine Sulfate (Morphine) 4 mg IVPUSH Q2H PRN PRN Reason: Shortness of Breath Last Admin: 07/21/20 08:40 Dose: 4 mg Documented by: Phenytoin Chew 50mg (Ptom) 0 each PO BEDTIME [facility] Last Admin: 07/20/20 19:56 Dose: 1 each Documented by: Phenytoin Sodium (Phenytoin) 0 mg PO BID [facility] Last Admin: 07/21/20 09:13 Dose: Not Given Documented by: - Exam Quality Assessment: Reports: Supplemental Oxygen General: Reports: Lethargic Neck: Reports: Supple Lungs: Reports: Decreased Breath Sounds, Rales, Wheezing Cardiovascular: Reports: Regular Rate, Regular Rhythm GI/Abdominal Exam: Normal Bowel Sounds, Soft Skin: Reports: Cool
== END 2020-07-21 10:23 | disposition swing bed (61) | DRG 177 ==
LOC: CC.ED 11:24 → UNDOADMIN 14:28 → CC.MS 14:28
PROVIDERS: ADMIT Physician Assistant Medical; ATTEND Family Medicine
PROC: 8E0ZXY6 Isolation (ICD-10-PCS; principal; 2020-07-15)
DX: U07.1 COVID-19 (principal); J12.89 Other viral pneumonia; R53.1 Weakness; E87.1 Hypo-osmolality and hyponatremia; J18.9 Pneumonia, unspecified organism; A04.72 Enterocolitis due to Clostridium difficile, not specified as recurrent; Z51.5 Encounter for palliative care; H91.90 Unspecified hearing loss, unspecified ear; Z98.890 Other specified postprocedural states; G40.909 Epilepsy, unspecified, not intractable, without status epilepticus; Z87.891 Personal history of nicotine dependence; I11.0 Hypertensive heart disease with heart failure; I50.9 Heart failure, unspecified; Z79.899 Other long term (current) drug therapy; Z98.49 Cataract extraction status, unspecified eye
CPT/HCPCS: 36415; 71045; 71275; 80053; 83605; 83735; 84484; 85025; 85379; 87040 ×2; 93005; 93010; 96360; 99285; A9270; 36600; 51702; 80048; 82803; 83880; 83935; 86140; 87045; 87046; 87493; 89055; 94761; J1100; J1650; J2270; J3490; J7030; J7050; J8540; Q9967

== ENCOUNTER 2020-07-21 10:16 | Inpatient (IN) | payer MEDICARE, BC ==
[2020-07-21] MEDS ORDERED: Morphine 2 MG/ML SYRINGE IVPUSH PRN (11:22)
[2020-07-21] MEDS ORDERED: LORazepam 2 MG/ML Syringe IVPUSH PRN (11:22)
[2020-07-21] MEDS: Morphine 4 MG/ML VIAL IVPUSH PRN ×2 (14:23→17:57)
== END 2020-07-21 21:27 | disposition expired | DRG 951 ==
LOC: CC.MS 10:16 → UNDOADMIN 10:41
PROVIDERS: ADMIT Family Medicine; ATTEND Family Medicine
PROC: 8E0ZXY6 Isolation (ICD-10-PCS; principal; 2020-07-21)
DX: Z51.5 Encounter for palliative care (principal); U07.1 COVID-19; J12.89 Other viral pneumonia; E87.1 Hypo-osmolality and hyponatremia; A04.72 Enterocolitis due to Clostridium difficile, not specified as recurrent; R53.1 Weakness; Z66 Do not resuscitate; R29.6 Repeated falls; Z79.899 Other long term (current) drug therapy; Z99.81 Dependence on supplemental oxygen
CPT/HCPCS: J2270